=== PATIENT | female | born 2000 | race Caucasian/White ===

== ENCOUNTER → 2018-11-09 | Outpatient (CLI) | payer OTHER ==
--- NOTE | 2018-11-09 15:23 | XR ---
EXAMINATION TYPE: XR wrist complete RT DATE OF EXAM: 11/09/2018 COMPARISON: None HISTORY: Wrist pain twisting injury TECHNIQUE: 4 view right wrist FINDINGS: No acute fractures are evident. Joint spaces are preserved. Soft tissues are normal. If there is pain at the anatomic snuff box, nuclear medicine bone scan can be performed for additiona l evaluation. Follow-up exams can be performed 7-10 days from acute trauma for continued pain. IMPRESSION: 1. Normal 4 view right wrist
== END | disposition home or self-care (01) ==
LOC: RADXRMAIN 14:44
PROVIDERS: ATTEND Emergency Medicine
DX: S63.501A Unspecified sprain of right wrist, initial encounter (principal)

== ENCOUNTER → 2018-11-16 | Outpatient (CLI) | payer OTHER ==
--- NOTE | 2018-11-16 16:12 | MR ---
EXAMINATION TYPE: MR wrist RT wo con DATE OF EXAM: 11/16/2018 COMPARISON: Right wrist radiographs dated 11/09/2018 HISTORY: Right wrist pain after twisting injury with negative radiographs on 11/09/2018. TECHNIQUE: Multiplanar, multisequence images of the right wrist were acquired without intravenous con trast per department protocol. FINDINGS: The triangular fibrocartilage appears grossly intact on this nonarthrographic examination. There is mild soft tissue swelling and subcutaneous edema overlying the radial aspect of the first pr oximal metacarpal and compartment 1 (extensor pollicis brevis and abductor pollicis longus). There is also very subtle thickening of the abductor pollicis longus. There is no evidence of abnormal bone marrow signal to suggest occult fracture. Flexor tendons and ex tensor tendons appear intact and of normal signal. The scapholunate interval and ligament appear unremarkable. Ulnar nerve and radial nerves appear unre markable. No malalignment of the wrist. Carpal carpal interspaces are maintained. IMPRESSION: 1. Focal soft tissue swelling over the radial aspect of the right first proximal metacarpal and pasquale rtment one of the tendons of the wrist with findings of mild tendinosis of the abductor pollicis long us and to a lesser degree of the extensor pollicis brevis. 2. No bone marrow edema to suggest occult fracture.
== END | disposition home or self-care (01) ==
LOC: RADMRIMAIN 14:58
PROVIDERS: ATTEND Orthopaedic Surgery
DX: M79.89 Other specified soft tissue disorders (principal); M67.833 Other specified disorders of tendon, right wrist

== ENCOUNTER 2019-05-08 17:15 | Emergency (ER) | payer OTHER ==
[2019-05-08 17:34] VITALS: RESP 18
[2019-05-08] MEDS ORDERED: KETOROLAC 30 MG/ML 1 ML VIAL IVP STA (19:59)
[2019-05-08] MEDS ORDERED: SODIUM CHLORIDE 0.9% 1,000 ML IV STA ×2 (19:59)
[2019-05-08] MEDS ORDERED: cefTRIAXone IN SWFI 1,000 MG/10 ML SYRINGE IVP STA (19:59)
[2019-05-08 20:51] LABS: Basophils % (A) 0 %; Eosinophils # (A) 0.1 k/uL (0-0.7); Eosinophils % (A) 1 %; HCT 42.7 % (34.0-46.0); HGB 14.5 gm/dL (11.4-16.0); Lymphocytes # (A) 1.2 k/uL (1.0-4.8); Lymphocytes % (A) 10 %; MCH 30.1 pg (25.0-35.0); MCV 88.4 fL (80.0-100.0); Mean Platelet Volume 7.5; Monocytes # (A) 0.7 k/uL (0-1.0); Monocytes % (A) 6 %; Neutrophils # (A) 9.4 k/uL (1.3-7.7); Neutrophils % (A) 80 %; Platelet Count 249 k/uL (150-450); RBC 4.83 m/uL (3.80-5.40); RDW 14.9 % (11.5-15.5); WBC 11.8 k/uL (3.8-10.6)
[2019-05-08 20:57] LABS: Appearance,Urine Clear (Clear); Bacteria,Urine Rare /hpf; Bilirubin,Urine Negative (Negative); Blood,Urine Moderate (Negative); Color,Urine Yellow; Glucose,Urine (UA) Negative (Negative); Ketones,Urine 1+ (Negative); Leukocyte Esterase,Urine Moderate (Negative); Mucus,Urine Rare /hpf; Nitrite,Urine Negative (Negative); Protein,Urine Trace (Negative); RBC,Urine 71 /hpf (0-5); Specific Gravity,Urine 1.043 (1.001-1.035); Squamous Epithelial Cell,Urine 1 /hpf (0-4); Urobilinogen,Urine <2.0 mg/dL (<2.0)
[2019-05-08 21:01] LABS: ALT 17 U/L (9-52); AST 18 U/L (14-36); African American GFR (CKD) >90 (>60 ml/min/1.73 sqM); Albumin 4.8 g/dL (3.5-5.0); Alkaline Phosphatase 74 U/L (38-126); Anion Gap 15 mmol/L; Blood Urea Nitrogen 10 mg/dL (7-17); Carbon Dioxide 23 mmol/L (22-30); Chloride 101 mmol/L (98-107); Glucose 97 mg/dL (74-99); Magnesium 2.2 mg/dL (1.6-2.3); Potassium 4.3 mmol/L (3.5-5.1); Sodium 139 mmol/L (137-145); Total Bilirubin 0.8 mg/dL (0.2-1.3); Total Protein 8.3 g/dL (6.3-8.2)
--- NOTE | 2019-05-08 21:02 | ED ---
Abdominal Pain HPI - General Source: patient, RN notes reviewed Mode of arrival: ambulatory Limitations: no limitations - History of Present Illness MD Complaint: flank pain <Stevo Gonsalez - Last Filed: 05/08/19 20:58> <Bacilio Taylor - Last Filed: 05/08/19 22:35> - General Chief Complaint: Abdominal Pain Stated Complaint: vomiting; fever; flank pain Time Seen by Provider: 05/08/19 19:52 - History of Present Illness Initial Comments: This a 19-year-old female with a recent diagnoses of UTI who presents with complaints of left flank pain but last 2 weeks she was diagnosed with UTI in the office today started on Cipro which throughout. The CAT scan was done outpatient was negative for acute findings she presents with pain is sharp with movement 10/10 severity dull at rest. Nausea vomiting she did have some diarrhea with it also. She denies any chance of no other modifying factors this time. (Stevo Gonsalez) - Related Data Home Medications Medication Instructions Recorded Confirmed No Known Home Medications 03/04/15 05/08/19 Allergies Allergy/AdvReac Type Severity Reaction Status Date / Time Penicillins Allergy Rash/Hives Verified 05/08/19 20:02 Review of Systems ROS Other: All systems not noted in ROS Statement are negative. <Stevo Gonsalez - Last Filed: 05/08/19 20:58> ROS Other: All systems not noted in ROS Statement are negative. <Bacilio Taylor - Last Filed: 05/08/19 22:35> ROS Statement: Those systems with pertinent positive or pertinent negative responses have been documented in the HPI. Past Medical History Additional Past Medical History / Comment(s): SEE DR BUSTAMANTE'S H&P History of Any Multi-Drug Resistant Organisms: None Reported Past Surgical History: Adenoidectomy, Tonsillectomy Additional Past Surgical History / Comment(s): TUBES PLACED LYNETTE EARS,COLONOSCOPY,EGD Past Anesthesia/Blood Transfusion Reactions: No Reported Reaction Past Psychological History: No Psychological Hx Reported Smoking Status: Current every day smoker Past Alcohol Use History: Occasional Past Drug Use History: None Reported - Past Family History Mother Family Medical History: No Reported History Father Family Medical History: No Reported History <Stevo Gonsalez - Last Filed: 05/08/19 20:58> General Exam Limitations: no limitations General appearance: alert, in no apparent distress Head exam: Present: atraumatic, normocephalic, normal inspection Eye exam: Present: normal appearance, PERRL, EOMI. Absent: scleral icterus, conjunctival injection, periorbital swelling ENT exam: Present: normal exam, mucous membranes moist Neck exam: Present: normal inspection. Absent: tenderness, meningismus, lymphadenopathy Respiratory exam: Present: normal lung sounds bilaterally. Absent: respiratory distress, wheezes, rales, rhonchi, stridor Cardiovascular Exam: Present: normal rhythm, tachycardia, normal heart sounds. Absent: systolic murmur, diastolic murmur, rubs, gallop, clicks GI/Abdominal exam: Present: soft, tenderness (Left flank tenderness left lower quadrant tenderness), normal bowel sounds. Absent: distended, guarding, reboun d, rigid Rectal exam: Present: deferred Extremities exam: Present: normal inspection, full ROM, normal capillary refill. Absent: tenderness, pedal edema, joint swelling, calf tenderness Back exam: Present: normal inspection, full ROM, CVA tenderness (L) Neurological exam: Present: alert, oriented X3, CN II-XII intact Psychiatric exam: Present: normal affect, normal mood Skin exam: Present: warm, dry, intact, normal color. Absent: rash <Stevo Gonsalez - Last Filed: 05/08/19 20:58> - General Exam Comments Initial Comments: This is a well-developed well-nourished awake alert oriented 3 female (Stevo Gonsalez) Course <Stevo Gonsalez Filed: 05/08/19 20:58> Vital Signs 05/08/19 05/08/19 05/08/19 17:30 19:49 22:13 Temperature 100.3 F H 100.6 F H 98.9 F Pulse Rate 130 H 104 H 85 Respiratory 18 18 18 Rate Blood Pressure 119/82 135/87 114/69 O2 Sat by Pulse 98 97 98 Oximetry - Reevaluation(s) Reevaluation #1: 05/08/19 21:01 The patient will be endorsed to Dr. Taylor at her shift change. Patient is demonstrated evidence of fever left flank pain tachycardia labs are pending at this time the suspected pyelonephritis this time. I did discuss the case with Dr. Aguirre earlier. . Workup is in progress. (Stevo Gonsalez) Medical Decision Making - Lab Data Result diagrams: 05/08/19 20:35 <Stevo Gonsalez - Last Filed: 05/08/19 20:58> - Lab Data Result diagrams: 05/08/19 20:35 05/08/19 20:35 <Bacilio Taylor - Last Filed: 05/08/19 22:35> - Medical Decision Making I receive this patient as sign out to reevaluate after fluids and medication. The patient states she is feeling much better and would like to go home. Discussed that Dr. Russell had mentioned keeping her in the hospital overnight but she states she is feeling somewhat better she wants to continue her outpatient care and follow-up with him in the clinic, discussed return parameters and appropriate follow-up. (Bacilio Taylor) - Lab Data Lab Results 05/08/19 05/08/19 05/08/19 Range/Units 20:35 20:35 20:35 WBC 11.8 H (3.8-10.6) k/uL RBC 4.83 (3.80-5.40) m/uL Hgb 14.5 (11.4-16.0) gm/dL Hct 42.7 (34.0-46.0) % MCV 88.4 (80.0-100.0) fL MCH 30.1 (25.0-35.0) pg MCHC 34.0 (31.0-37.0) g/dL RDW 14.9 (11.5-15.5) % Plt Count 249 (150-450) k/uL Neutrophils % 80 % Lymphocytes % 10 % Monocytes % 6 % Eosinophils % 1 % Basophils % 0 % Neutrophils # 9.4 H (1.3-7.7) k/uL Lymphocytes # 1.2 (1.0-4.8) k/uL Monocytes # 0.7 (0-1.0) k/uL Eosinophils # 0.1 (0-0.7) k/uL Basophils # 0.0 (0-0.2) k/uL Sodium 139 (137-145) mmol/L Potassium 4.3 (3.5-5.1) mmol/L Chloride 101 (98-107) mmol/L Carbon Dioxide 23 (22-30) mmol/L Anion Gap 15 mmol/L BUN 10 (7-17) mg/dL Creatinine 0.84 (0.52-1.04) mg/dL Est GFR (CKD-EPI)AfAm >90 (>60 ml/min/1.73 sqM) Est GFR (CKD-EPI)NonAf >90 (>60 ml/min/1.73 sqM) Glucose 97 (74-99) mg/dL Plasma Lactic Acid James (0.7-2.0) mmol/L Calcium 10.0 (8.4-10.2) mg/dL Magnesium 2.2 (1.6-2.3) mg/dL Total Bilirubin 0.8 (0.2-1.3) mg/dL AST 18 (14-36) U/L ALT 17 (9-52) U/L Alkaline Phosphatase 74 (38-126) U/L Total Protein 8.3 H (6.3-8.2) g/dL Albumin 4.8 (3.5-5.0) g/dL Urine Color Urine Appearance (Clear) Urine pH (5.0-8.0) Ur Specific [place] (1.001-1.035) Urine Protein (Negative) Urine Glucose (UA) (Negative) Urine Ketones (Negative) Urine Blood (Negative) Urine Nitrite (Negative) Urine Bilirubin (Negative) Urine Urobilinogen (<2.0) mg/dL Ur Leukocyte Esterase (Negative) Urine RBC (0-5) /hpf Urine WBC (0-5) /hpf Ur Squamous Epith Cells (0-4) /hpf Urine Bacteria (None) /hpf Urine Mucus (None) /hpf Urine HCG, Qual Not Detected (Not Detectd) 05/08/19 05/08/19 Range/Units 20:35 20:35 WBC (3.8-10.6) k/uL RBC (3.80-5.40) m/uL Hgb (11.4-16.0) gm/dL Hct (34.0-46.0) % MCV (80.0-100.0) fL MCH (25.0-35.0) pg MCHC (31.0-37.0) g/dL RDW (11.5-15.5) % Plt Count (150-450) k/uL Neutrophils % % Lymphocytes % % Monocytes % % Eosinophils % % Basophils % % Neutrophils # (1.3-7.7) k/uL Lymphocytes # (1.0-4.8) k/uL Monocytes # (0-1.0) k/uL Eosinophils # (0-0.7) k/uL Basophils # (0-0.2) k/uL Sodium (137-145) mmol/L Potassium (3.5-5.1) mmol/L Chloride (98-107) mmol/L Carbon Dioxide (22-30) mmol/L Anion Gap mmol/L BUN (7-17) mg/dL Creatinine (0.52-1.04) mg/dL Est GFR (CKD-EPI)AfAm (>60 ml/min/1.73 sqM) Est GFR (CKD-EPI)NonAf (>60 ml/min/1.73 sqM) Glucose (74-99) mg/dL Plasma Lactic Acid James 1.1 (0.7-2.0) mmol/L Calcium (8.4-10.2) mg/dL Magnesium (1.6-2.3) mg/dL Total Bilirubin (0.2-1.3) mg/dL AST (14-36) U/L ALT (9-52) U/L Alkaline Phosphatase (38-126) U/L Total Protein (6.3-8.2) g/dL Albumin (3.5-5.0) g/dL Urine Color Yellow Urine Appearance Clear (Clear) Urine pH 6.0 (5.0-8.0) Ur Specific [place] 1.043 H (1.001-1.035) Urine Protein Trace H (Negative) Urine Glucose (UA) Negative (Negative) Urine Ketones 1+ H (Negative) Urine Blood Moderate H (Negative) Urine Nitrite Negative (Negative) Urine Bilirubin Negative (Negative) Urine Urobilinogen <2.0 (<2.0) mg/dL Ur Leukocyte Esterase Moderate H (Negative) Urine RBC 71 H (0-5) /hpf Urine WBC 41 H (0-5) /hpf Ur Squamous Epith Cells 1 (0-4) /hpf Urine Bacteria Rare H (None) /hpf Urine Mucus Rare H (None) /hpf Urine HCG, Qual (Not Detectd) Disposition <Stevo Gonsalez - Last Filed: 05/08/19 20:58> Is patient prescribed a controlled substance at d/c from ED?: No <Bacilio Taylor - Last Filed: 05/08/19 22:35> Clinical Impression: Urinary tract infection Disposition: HOME SELF-CARE Condition: Good Instructions (If sedation given, give patient instructions): Urinary Tract Infection in Women (ED) Referrals: Amanuel Aguirre Jr, [Primary Care Provider] - 1-2 days
[2019-05-08 22:14] VITALS: BP 114/69; PULSE 85; TEMP 98.9
== END 2019-05-08 22:50 | disposition home or self-care (01) ==
LOC: EC 17:15
DX: N39.0 Urinary tract infection, site not specified (principal); R00.0 Tachycardia, unspecified; R11.2 Nausea with vomiting, unspecified; R19.7 Diarrhea, unspecified; F17.200 Nicotine dependence, unspecified, uncomplicated; Z88.0 Allergy status to penicillin
CPT/HCPCS: 36415; 80053; 83605; 83735; 85025; 81001; 81025; 87086; 99284; 96374; 96375; 96361 ×2; J0696; J1885

== ENCOUNTER → 2019-05-08 | Outpatient (CLI) | payer OTHER ==
[2019-05-08 12:07] LABS: ALT 19 U/L (9-52); AST 18 U/L (14-36); African American GFR (CKD) >90 (>60 ml/min/1.73 sqM); Alkaline Phosphatase 72 U/L (38-126); Amylase 56 U/L (30-110); Anion Gap 12 mmol/L; Blood Urea Nitrogen 11 mg/dL (7-17); Carbon Dioxide 26 mmol/L (22-30); Chloride 102 mmol/L (98-107); Glucose 98 mg/dL (74-99); Potassium 4.5 mmol/L (3.5-5.1); Sodium 140 mmol/L (137-145); Total Bilirubin 1.1 mg/dL (0.2-1.3); Total Protein 8.8 g/dL (6.3-8.2)
[2019-05-08 12:27] LABS: Basophils % (A) 0 %; Eosinophils # (A) 0.1 k/uL (0-0.7); Eosinophils % (A) 1 %; HCT 46.5 % (34.0-46.0); HGB 15.3 gm/dL (11.4-16.0); Lymphocytes # (A) 0.9 k/uL (1.0-4.8); Lymphocytes % (A) 7 %; MCH 29.4 pg (25.0-35.0); MCHC 32.9 g/dL (31.0-37.0); MCV 89.3 fL (80.0-100.0); Mean Platelet Volume 7.9; Monocytes # (A) 0.7 k/uL (0-1.0); Monocytes % (A) 6 %; Neutrophils % (A) 84 %; Platelet Count 228 k/uL (150-450); RBC 5.21 m/uL (3.80-5.40); RDW 14.7 % (11.5-15.5); WBC 11.9 k/uL (3.8-10.6)
--- NOTE | 2019-05-08 13:12 | CT ---
EXAMINATION TYPE: CT abdomen pelvis w con DATE OF EXAM: 05/08/2019 COMPARISON: Nausea vomiting fever INDICATION: Left flank pain, nausea, vomiting DLP: 469.2 mGycm, Automated exposure control for dose reduction was used. CONTRAST: 100 mL of Isovue 300. Study performed with Oral Contrast TECHNIQUE: Axial images were obtained from above the diaphragm to the pubic rami in the axial plane a t 5 mm thick sections. Reconstructed images are reviewed on the computer in the coronal plane. FINDINGS: Limited CT sections are obtained the lung bases. The lung bases are clear. CT ABDOMEN: Reflux in the distal esophagus is evident. Liver: Normal Spleen: Normal Pancreas: Normal Adrenal glands: The adrenal glands are normal. Gallbladder: Normal Kidneys: No masses are evident. No hydronephrosis is present. No cysts are present. Delayed images were obtained through the kidneys, which remain unremarkable. Aorta: Normal Inferior vena cava: Normal. CT PELVIS: Loops of bowel within the abdomen and pelvis are normal. There are loops of bowel which are incom pletely distended or lack oral contrast limiting their evaluation. Appendix: Normal as visualized. Urinary bladder: Normal. Genitourinary structures: Uterus contains an IUD. Adnexal regions are normal. No free fluid is within the pelvis. Osseous structures: No suspicious lytic or sclerotic lesions. IMPRESSIONS: 1. CT abdomen pelvis appears unremarkable.
== END | disposition home or self-care (01) ==
LOC: RADCTMAIN 11:10
PROVIDERS: ATTEND Nurse Practitioner Family
DX: R10.84 Generalized abdominal pain (principal); R31.9 Hematuria, unspecified; R11.2 Nausea with vomiting, unspecified; R50.9 Fever, unspecified; Z88.0 Allergy status to penicillin
CPT/HCPCS: 80053; 82150; 83690; 85025; 74177; 36415; Q9967

== ENCOUNTER → 2019-07-11 | Outpatient (CLI) | payer OTHER ==
--- NOTE | 2019-07-12 07:48 | US ---
EXAMINATION TYPE: US transvaginal DATE OF EXAM: 07/11/2019 COMPARISON: NONE CLINICAL HISTORY: R10.30 LOWER ABD PAIN. IUD placed 5 years ago, heavy bleeding now, , TECHNIQUE: TV. Transvaginal sonographic images EXAM MEASUREMENTS: Uterus: 8.9 x 5.1 x 3.8 cm Endometrial Stripe: 0.6 cm Right Ovary: 3.1 x 3.0 x 2.5 cm Left Ovary: N/A 1. Uterus: Anteverted IUD seen within GLORIA and upper cervix, low-lying 2. Endometrium: wnl 3. Right Ovary: wnl 4. Left Ovary: not seen due to bowel gas 5. Bilateral Adnexa: wnl 6. Posterior cul-de-sac: wnl IMPRESSION: 1. Low-lying intrauterine device spanning the upper cervix and lower uterine segment. 2. Endometrial thickness is within normal limits for a premenopausal female. 3. Nonvisualization of the left ovary due to overlying bowel gas.
== END | disposition home or self-care (01) ==
LOC: RADUSWWP 15:29
PROVIDERS: ATTEND Family Medicine
DX: N94.6 Dysmenorrhea, unspecified (principal); Z97.5 Presence of (intrauterine) contraceptive device; Z88.0 Allergy status to penicillin
CPT/HCPCS: 76830

== ENCOUNTER → 2019-07-17 | Outpatient (CLI) | payer OTHER ==
--- NOTE | 2019-07-17 12:58 | US ---
EXAMINATION TYPE: US transvaginal DATE OF EXAM: 07/17/2019 COMPARISON: US 07/11/2019 CLINICAL HISTORY: Female pelvic pain R10.2. Recheck on IUD placement, intermittent left pelvic pain x 2 months, 1, para 1, history of . TECHNIQUE: Transvaginal exam only per ordering physician. Date of LMP: Patient unsure EXAM MEASUREMENTS: Uterus: 7.7 x 3.6 x 4.6 cm Endometrial Stripe: 1.0 cm Right Ovary: 3.2 x 1.9 x 2.1 cm Left Ovary: 3.1 x 2.2 x 2.5 cm 1. Uterus: anteverted, IUD seen within GLORIA and upper cervix, low lying 2. Endometrium: appears wnl 3. Right Ovary: multiple follicles, physiologic 4. Left Ovary: multiple follicles, physiologic 5. Bilateral Adnexa: wnl 6. Posterior cul-de-sac: wnl IMPRESSION: 1. Redemonstration of a low-lying intrauterine device within the lower uterine segment and upper cerv ix. 2. Endometrial thickness is again within normal limits for a premenopausal female measuring 1.0 cm.
== END | disposition home or self-care (01) ==
LOC: RADUSWWP 12:02
PROVIDERS: ATTEND Nurse Practitioner Family
DX: T83.32XA Displacement of intrauterine contraceptive device, initial encounter (principal)
CPT/HCPCS: 76830

== ENCOUNTER → 2019-08-09 | Outpatient (CLI) | payer OTHER ==
--- NOTE | 2019-08-09 13:02 | XR ---
EXAMINATION TYPE: XR elbow complete LT DATE OF EXAM: 08/09/2019 COMPARISON: None HISTORY: Pain, osteogenesis TECHNIQUE: Three-view left elbow FINDINGS: No acute fractures are evident. Radius aligns normally with the humerus. Anterior fat pad i s normal. No elevation of posterior fat pad is evident. IMPRESSION: 1. No acute fractures within the [id number]. 2. Follow-up exams can be performed 7-10 days from acute trauma for continued pain.
== END | disposition home or self-care (01) ==
LOC: RADXRMAIN 12:29
PROVIDERS: ATTEND Family Medicine
DX: M25.522 Pain in left elbow (principal)

== ENCOUNTER → 2019-08-22 | Outpatient (CLI) | payer OTHER ==
--- NOTE | 2019-08-23 11:24 | XR ---
EXAMINATION TYPE: XR knee complete RT DATE OF EXAM: 08/22/2019 CLINICAL HISTORY: pain TECHNIQUE: Three views of the right knee are obtained. COMPARISON: None. FINDINGS: There is no acute fracture/dislocation. The tri-compartment joint spaces appear within no rmal limits. The overlying soft tissue appears unremarkable. IMPRESSION: There is no acute fracture or dislocation.ICD 10 NO FRACTURE, INITIAL EVALUATION
== END | disposition home or self-care (01) ==
LOC: RADXRMAIN 16:34
PROVIDERS: ATTEND Family Medicine
DX: M25.561 Pain in right knee (principal); M25.461 Effusion, right knee

== ENCOUNTER → 2019-09-01 | Outpatient (CLI) | payer OTHER ==
--- NOTE | 2019-09-02 12:35 | US ---
EXAMINATION TYPE: US venous Doppler duplex LE LYNETTE and Venous Insufficiency evaluation . DATE OF EXAM: 09/01/2019 5:33 PM COMPARISON: NONE CLINICAL HISTORY: I87.2 Venous insufficiency (chronic) (peripheral). Cardiac palpitations; Negative f or varicose veins. SIDE PERFORMED: Bilateral TECHNIQUE: The lower extremity deep venous system is examined utilizing real time linear array sonog arvin with graded compression, Doppler sonography and color-flow sonography. VESSELS IMAGED: Common Femoral Vein Deep Femoral Vein Greater Saphenous Vein * Femoral Vein Popliteal Vein Proximal Calf Veins (* superficial vessels / SVT) No venous valvular incompetency is noted bilaterally in deep or superficial venous systems. Delayed v alve closure is only noted at Right CFV. Right Leg: Negative for DVT. Negative for SVT. Left Leg: Negative for DVT. Negative for SVT There is normal flow, compressibility, vascular waveforms. IMPRESSION: No evident venous insufficiency or deep venous thrombosis within the lower extremities
== END | disposition home or self-care (01) ==
LOC: RADUSMAIN 16:36
PROVIDERS: ATTEND Internal Medicine Cardiovascular Disease
DX: R00.2 Palpitations (principal)
CPT/HCPCS: 93970

== ENCOUNTER → 2019-09-18 | Outpatient (CLI) | payer OTHER ==
--- NOTE | 2019-09-18 22:29 | MR ---
EXAMINATION TYPE: MR knee RT wo con DATE OF EXAM: 09/18/2019 COMPARISON: Outside right knee x-ray September 01, 2019 HISTORY: Right Knee Pain per order. Additional symptoms of locking and swelling for couple months per patient. TECHNIQUE: Multiplanar, multisequence images of the knee is performed without IV contrast. FINDINGS: MEDIAL MENISCUS: Anterior and posterior horns are intact without tear. LATERAL MENISCUS: Anterior and posterior horns are intact without tear. CRUCIATE LIGAMENTS: The anterior and posterior cruciate ligaments are intact and unremarkable. COLLATERAL LIGAMENTS: The medial collateral ligament and lateral collateral ligament complex are inta ct and unremarkable. EXTENSOR MECHANISM: Visualized quadriceps and patellar tendons are intact. EFFUSION: There is small suprapatellar joint effusion. POPLITEAL CYST: No popliteal/marinelli cyst. TRICOMPARTMENT SPACES: Tricompartment joint space is fairly well-maintained. No significant spurring is seen. CARTILAGE: Tricompartment articular cartilage is preserved. No significant chondromalacia patella. BONE MARROW SIGNAL: No focal abnormal marrow signal is appreciated. OTHER: No additional significant abnormality is appreciated. IMPRESSION: No meniscal or ligamentous tear is seen.
== END | disposition home or self-care (01) ==
LOC: RADMRIMAIN 18:57
PROVIDERS: ATTEND Orthopaedic Surgery
DX: M25.561 Pain in right knee (principal)

== ENCOUNTER → 2020-06-26 | Outpatient (CLI) | payer OTHER ==
--- NOTE | 2020-06-27 04:30 | CT ---
EXAMINATION TYPE: CT abdomen pelvis wo con DATE OF EXAM: 06/26/2020 COMPARISON: 05/08/2019 HISTORY: 20-year-old female lower anterior abdominal pain, hematuria CT DLP: 776 mGycm. Automated exposure control for dose reduction was used. TECHNIQUE: Contiguous axial scanning of the abdomen and pelvis without IV contrast. Coronal and sagit allison reconstructions performed. FINDINGS: Heart normal size without pericardial effusion. Lung bases clear without pleural effusion. Liver mildly enlarged at 18.3 cm. Otherwise, noncontrast appearance of the liver, gallbladder, adrena l glands, spleen, and pancreas shows no gross anomaly. Redemonstrated bilateral extrarenal pelves. No nephrolithiasis or noemy hydronephrosis is seen. No dilated small bowel, free fluid, free air. There is a omental fat-containing supraumbilical midline hernia measuring 2.9 cm wide and 4.0 cm cran iocaudal with a pinhole 6 mm abdominal wall defect. No associated inflammatory changes. No mesenteric or retroperitoneal lymphadenopathy. Normal appendix. Mild to moderate stool burden. There is a nodular area of mixed fat and soft tissue density measuring 1.4 cm in the left anterior pelvis adjacent to the proximal sigmoid colon, axial im age 113. Moderate stool retained within the rectum which is distended up to 5.6 cm wide. Prominent distention of the urinary bladder. Multiple pelvic phlebolith. Uterus anteverted. Both ovar ies are visualized. No abnormal fluid collection in the pelvis or pelvic lymphadenopathy. Bones: No osseous destructive process. IMPRESSION: 1. A 2.9 x 4.0 cm omental fat-containing supraumbilical midline hernia with a pinhole, 6 mm abdomina l wall defect. No associated inflammatory changes. 2. A 1.4 cm nodular area of mixed fat and soft tissue density in the left anterior pelvis adjacent t o the proximal sigmoid colon. Correlate for any symptoms of epiploic appendagitis. 3. Moderate stool retained in the rectum which is distended up to 5.6 cm wide. 4. No nephrolithiasis or hydronephrosis. Prominent distention of the urinary bladder.
== END | disposition home or self-care (01) ==
LOC: RADCTMAIN 16:22
PROVIDERS: ATTEND Family Medicine
DX: K42.9 Umbilical hernia without obstruction or gangrene (principal); M79.89 Other specified soft tissue disorders; K62.89 Other specified diseases of anus and rectum; N32.89 Other specified disorders of bladder; M95.8 Other specified acquired deformities of musculoskeletal system; R19.09 Other intra-abdominal and pelvic swelling, mass and lump; Z88.0 Allergy status to penicillin
CPT/HCPCS: 74176

== ENCOUNTER → 2020-07-09 | Outpatient (CLI) | payer OTHER | END | disposition home or self-care (01) | LOC: LABPAT 08:35 | PROVIDERS: ATTEND Student in an Organized Health Care Education/Training Program | DX: Z01.818 Encounter for other preprocedural examination (principal); U07.1 COVID-19 | CPT/HCPCS: 93005; U0003; C9803; 36415; 86850; 86900; 86901 ==

== ENCOUNTER 2020-07-16 09:43 | Day surgery (SDC) | payer OTHER ==
[2020-07-12 14:54] VITALS: BMI 27.9
[~2020-07-16 09:43] MED LIST: DEXAMETHASONE SOD PHOSPHATE 4 MG/ML 1 ML VIAL IV ONE; LACTATED RINGERS 1,000 ML IV SCH; MIDAZOLAM 2 MG/2 ML VIAL IV PRN; ONDANSETRON 4 MG/2 ML VIAL IVP ONE; SCOPOLAMINE 1.5MG/72HR PATCH TRANSDERM ONE
[2020-07-16] MEDS ORDERED: LIDOCAINE 1% (10MG/ML) FOR IV START INTRADERMA ONE (10:45)
[2020-07-16] MEDS ORDERED: CLINDAMYCIN 600 MG in DEXTROSE 5% IN WATER 50 ML IVPB STA ×2 (11:08)
[2020-07-16] MEDS ORDERED: HEPARIN SODIUM,PORCINE 5,000 UNIT/ML 1 ML VIAL ONE (11:09)
--- NOTE | 2020-07-16 11:38 | P.ANPRN ---
Procedure Note - Anesthesia - Nerve Block Performed Bilateral Transversus Abdominis Single Date of Procedure: 07/16/20 Procedure Start Time: 11:24 Procedure Stop Time: 11:34 Location of Patient: PreOp Indication: Acute Post-Operative Pain, Requested by Surgeon Sedation Type: Sedate with meaningful contact maintained Preparation: Sterile Prep Position: Supine Catheter: None Needle Types: Pajunk Needle Gauge: 21 Ultrasound used to visualize needle placement: Yes Ultrasound used to observe medication spread: Yes Injectate: 0.5% Ropivacaine (see comment for volume) (30 ml plus decadron 4 mg) Blood Aspirated: No Pain Paresthesia on Injection Noted: No Resistance on Injection: Normal Image Stored and Saved: Yes Events: Uneventful and Well Tolerated
[2020-07-16] MEDS ORDERED: HEPARIN SODIUM,PORCINE 5,000 UNIT/ML 1 ML VIAL SQ ONE (11:42)
[2020-07-16] MEDS ORDERED: ROPIVACAINE 5 MG/ML 30 ML VIAL ONE (12:06)
[2020-07-16] MEDS ORDERED: MIDAZOLAM 2 MG/2 ML VIAL ONE (12:06)
[2020-07-16] MEDS ORDERED: GLYCOPYRROLATE 0.2 MG/ML 2 ML VIAL ONE (12:06)
[2020-07-16] MEDS ORDERED: PROPOFOL 10 MG/ML 20 ML VIAL IV ONE (12:06)
[2020-07-16] MEDS ORDERED: SUCCINYLCHOLINE CHLORIDE 100 MG/5 ML SYR IV ONE (12:06)
[2020-07-16] MEDS ORDERED: fentaNYL (PF) 50 MCG/ML 2 ML AMP ONE (12:06)
[2020-07-16] MEDS ORDERED: ROCURONIUM 10 MG/ML (10 ML VIAL) IV ONE (12:06)
[2020-07-16] MEDS ORDERED: HYDROmorphone (PF) 1 MG/ML ONE (12:06)
[2020-07-16] MEDS ORDERED: LIDOCAINE 1% INJ 10MG/ML (20 ML MDV) ONE (12:06)
[2020-07-16] MEDS ORDERED: NEOSTIGMINE 1 MG/ML 10 ML VIAL ONE (12:06)
[2020-07-16] MEDS ORDERED: BUPIVACAINE (PF) 0.25% 30 ML VIAL SQ ONE ×2 (12:28→12:35)
[2020-07-16] MEDS ORDERED: LACTATED RINGERS 1,000 ML IV ONE (14:15)
[2020-07-16] MEDS: HYDROmorphone 0.5 MG/0.5 ML SYRINGE IVP PRN ×2 (14:31→14:41)
[2020-07-16 14:36] VITALS: TEMP 97.1
--- NOTE | 2020-07-16 14:44 | P.OP ---
Date of Procedure: 07/16/20 Preoperative Diagnosis: Incarcerated ventral hernia Postoperative Diagnosis: Same Procedure(s) Performed: Robotic-assisted repair of incarcerated ventral hernia Anesthesia: MADDI Surgeon: Martinez Mcdermott Estimated Blood Loss (ml): 10 Condition: stable Disposition: PACU Description of Procedure: Patient is brought operative suite remained in the supine position on general endotracheal anesthesia per Department of anesthesia she was prepped and draped usual sterile fashion timeout was performed correct patient correct procedure correct site was verified a 5 mm incision was made in the left upper quadrant at palmers point using a 5 mm Visiport the abdomen was entered under direct visualization. The abdomen was insufflated no injuries were noted. An 8 mm port was placed left lateral and the midline. And a 8 mm port was placed in the left lower quadrant under direct visualization. The 5 mm port site was upsized to a 12 mm port. The mesh and needles were placed under direct visualization and the abdomen and the robot was docked. There was a supraumbilical defect noted with incarcerated fat and containing part of the falciform ligament. This was taken down and reduced. The falciform was partially taken down and excised with the LigaSure device. The defect was then closed with an oh straw affixed. The mesh was placed and brought up to the anterior abdominal wall balloon was insufflated and then the mesh was circumferentially sutured with 2-0 V locksutures. The balloon and all the needles were removed the specimen hernia contents was removed the 12 mm port site was closed with the fascia with an 0 Vicryl in an interrupted fashion skin was closed after all ports removed under d irect visualization the abdomen was desufflated with 4-0 Monocryl suture. All by skin glue. Patient tolerated the procedure well there are no apparent complications Plan - Discharge Summary Discharge Rx Participant: Yes New Discharge Prescriptions: No Action Metoprolol Tartrate [Lopressor] 12.5 mg PO BID Discharge Medication List Metoprolol Tartrate [Lopressor] 12.5 mg PO BID 07/12/20 [History]
[2020-07-16] MEDS: HYDROmorphone 1 MG/ML 1 ML SYRINGE IVP ONE ×2 (14:52→15:04)
[2020-07-16] MEDS ORDERED: KETOROLAC 15 MG/ML 1 ML VIAL IVP ONE (14:53)
[2020-07-16] MEDS ORDERED: ONDANSETRON 4 MG/2 ML VIAL IVP ONE (14:53)
[2020-07-16 15:37] VITALS: RESP 18
[2020-07-16 16:46] VITALS: BP 111/63; PULSE 69
[2020-07-16] MEDS ORDERED: HYDROcodone/APAP 5-325MG 1 EACH TAB PO ONE (16:50)
[2020-07-16] MEDS ORDERED: HYDROcodone/APAP 5-325MG 1 EACH TAB ONE (16:53)
== END 2020-07-16 17:27 | disposition home or self-care (01) ==
LOC: OR 09:43
PROVIDERS: ATTEND Student in an Organized Health Care Education/Training Program
DX: K43.6 Other and unspecified ventral hernia with obstruction, without gangrene (principal); Z98.891 History of uterine scar from previous surgery; Z98.890 Other specified postprocedural states; F17.210 Nicotine dependence, cigarettes, uncomplicated; Z82.49 Family history of ischemic heart disease and other diseases of the circulatory system; Z79.3 Long term (current) use of hormonal contraceptives; Z79.899 Other long term (current) drug therapy; Z88.0 Allergy status to penicillin
CPT/HCPCS: 49653; S2900; 36415; 64488; 86850; 86900; 86901; 88302

== ENCOUNTER → 2021-02-08 | Outpatient (CLI) | payer OTHER ==
--- NOTE | 2021-02-09 05:22 | MR ---
EXAMINATION TYPE: MR knee RT wo con DATE OF EXAM: 02/08/2021 COMPARISON: 09/18/2019 HISTORY: R knee pain Multiplanar multiecho imaging of the right knee was performed without contrast. The anterior and posterior cruciate ligaments are intact. There is small knee joint effusion. There a re small linear area of increased signal in the posterior horn medial meniscus extending to the infer ior surface. The lateral meniscus appears intact. The collateral ligaments are intact. There is no ev idence of a fracture. I see no bony destructive process. IMPRESSION: Small joint effusion. Small horizontal tear posterior horn medial meniscus without significant change compared to old exam. Mild knee joint effusion not significantly different.
== END | disposition home or self-care (01) ==
LOC: RADMRIMAIN 09:13
PROVIDERS: ATTEND Nurse Practitioner Family
DX: M23.321 Other meniscus derangements, posterior horn of medial meniscus, right knee (principal)

== ENCOUNTER 2021-08-24 21:16 | Emergency (ER) | payer OTHER ==
[2021-08-24] MEDS ORDERED: LIDOCAINE 1% INJ 10MG/ML (20 ML MDV) SQ ONE (22:26)
[2021-08-24] MEDS ORDERED: ACET/COD 300 MG/30 MG STARTER PACK 6 TAB BTL PO STA (22:57)
--- NOTE | 2021-08-24 23:12 | ED ---
Skin/Abscess/FB HPI - General Chief complaint: Skin/Abscess/Foreign Body Stated complaint: skin infection Time Seen by Provider: 08/24/21 22:11 Source: patient, RN notes reviewed Mode of arrival: ambulatory Limitations: no limitations - History of Present Illness Initial comments: Patient is a 21-year-old female that presents to the emergency department complaining of a left neck abscess. She notes she was told by family to come to the emergency room to get looked at for possible MRSA. Patient notes she did try squeezing on her own but nothing came out. She notes that it has gotten significantly bigger over the past couple days. She denied any other issues or complaints. She notes it is extremely tender. She denied any chest pain shortness of breath headache nausea vomiting diarrhea constipation fever fatigue chills. - Related Data Home Medications Medication Instructions Recorded Confirmed Metoprolol Tartrate [Lopressor] 12.5 mg PO BID 07/12/20 07/12/20 Previous Rx's Medication Instructions Recorded Docusate [Colace] 100 mg PO DAILY 10 Days #10 capsule 07/16/20 HYDROcodone/APAP 5-325MG [[place] 1 tab PO Q4HR PRN 3 Days #18 tab 07/16/20 5-325] Doxycycline Monohydrate [Monodox] 100 mg PO Q12HR #20 cap 08/24/21 Allergies Allergy/AdvReac Type Severity Reaction Status Date / Time Penicillins Allergy Rash/Hives Verified 08/24/21 22:07 Review of Systems ROS Statement: Those systems with pertinent positive or pertinent negative responses have been documented in the HPI. ROS Other: All systems not noted in ROS Statement are negative. Past Medical History Past Medical History: No Reported History Additional Past Medical History / Comment(s): SEE DR BUSTAMANTE'S H&P History of Any Multi-Drug Resistant Organisms: None Reported Past Surgical History: Adenoidectomy, Ear Surgery, Hernia Repair, Tonsillectomy Additional Past Surgical History / Comment(s): TUBES PLACED LYNETTE EARS,COLONOSCOPY,EGD Past Anesthesia/Blood Transfusion Reactions: No Reported Reaction Past Psychological History: No Psychological Hx Reported Smoking Status: Former smoker Past Alcohol Use History: Occasional Past Drug Use History: None Reported - Past Family History Mother Family Medical History: No Reported History Father Family Medical History: No Reported History General Exam Limitations: no limitations General appearance: alert, in no apparent distress Head exam: Present: atraumatic, normocephalic, normal inspection Eye exam: Present: normal appearance, PERRL, EOMI. Absent: scleral icterus, conjunctival injection, periorbital swelling ENT exam: Present: normal exam, mucous membranes moist Neck exam: Present: normal inspection, other (Abscess to the lateral left side of the neck measuring approximately 3 cm x 3 cm exquisitely tender.) Respiratory exam: Present: normal lung sounds bilaterally. Absent: respiratory distress, wheezes, rales, rhonchi, stridor Cardiovascular Exam: Present: regular rate, normal rhythm, normal heart sounds. Absent: systolic murmur, diastolic murmur, rubs, gallop, clicks GI/Abdominal exam: Present: soft, normal bowel sounds. Absent: distended, tenderness, guarding, rebound, rigid Extremities exam: Present: normal inspection, full ROM, normal capillary refill. Absent: tenderness, pedal edema, joint swelling, calf tenderness Neurological exam: Present: alert, oriented X3 Psychiatric exam: Present: normal affect, normal mood Skin exam: Present: warm, dry, intact, normal color. Absent: rash Course Vital Signs 08/24/21 22:08 Temperature 99.0 F Pulse Rate 97 Respiratory 20 Rate Blood Pressure 117/75 O2 Sat by Pulse 100 Oximetry Procedures - Incision & Drainage Consent Obtained: verbal consent Site: neck (Left side) Size (cm): 3 Anesthetic Used: lidocaine 1% Amount (mLs): 5 I&D Cleaning Method: Alcohol Wipe Sterile Field Used?: Yes Scalpel Used: #11 Needle Aspiration Performed?: No Irrigation Performed?: No I&D Drainage Obtained: Pus, Blood Culture Obtained?: Yes Patient Tolerated Procedure: well, no complications Medical Decision Making - Medical Decision Making 21-year-old female complaining of abscess to left sided neck. Aerobic wound culture lidocaine ordered. Patient tolerated incision and drainage well. Minimal pus and blood was expressed from the area. Patient will be given antibiotics will be sent to pharmacy. Case discussed with Dr. Taylor, patient discharge home. Disposition Clinical Impression: Abscess Disposition: HOME SELF-CARE Condition: Stable Instructions (If sedation given, give patient instructions): Abscess (ED), Abscess Incision and Drainage (ED) Additional Instructions: Please return to the Emergency Department if symptoms worsen or any other concerns. Follow-up with primary care 1-2 days. Alternate Tylenol and Motrin every 3 hours as needed for aches and pains. Take antibiotics as prescribed until complete. Prescriptions: Doxycycline Monohydrate [Monodox] 100 mg PO Q12HR #20 cap Is patient prescribed a controlled substance at d/c from ED?: No Referrals: Amanuel Aguirre Jr, DO [Primary Care Provider] - 1-2 days Time of Disposition: 23:11
[2021-08-24 23:26] VITALS: BP 110/70; PULSE 91; RESP 17; TEMP 98.5
== END 2021-08-24 23:35 | disposition home or self-care (01) ==
LOC: EC 21:16
DX: L02.11 Cutaneous abscess of neck (principal); Z87.891 Personal history of nicotine dependence; Z72.89 Other problems related to lifestyle
CPT/HCPCS: 87070; 87205; 99282; 10060; J2001

== ENCOUNTER 2021-08-27 00:05 | Emergency (ER) | payer OTHER ==
[2021-08-27 00:09] VITALS: BP 128/83; TEMP 98.1
--- NOTE | 2021-08-27 02:14 | ED ---
General Adult HPI - General Chief complaint: Skin/Abscess/Foreign Body Stated complaint: neck infection Time Seen by Provider: 08/27/21 02:10 Source: patient, family, RN notes reviewed, old records reviewed Mode of arrival: ambulatory Limitations: no limitations - History of Present Illness Initial comments: Well-appearing 20-year-old female presents to the emergency room with a abscess to the left side of her neck its been there since Wednesday. Patient states that started off as like a pimple and she been trying to squeeze and could not get any drainage. She came to the emergency room on August 24 and had an I&D was put on doxycycline. She seen her primary care doctor yesterday and changed her to Bactrim. She states that he continues to be tender in painful and draining when she feels sick. She denies any fevers. -: days(s) (4) Location: neck (left side) Severity scale (1-10): 4 Quality: constant Consistency: constant Improves with: none Worsens with: other (palpation) Associated Symptoms: denies other symptoms Treatments Prior to Arrival: other (bactrim) - Related Data Home Medications Medication Instructions Recorded Confirmed Metoprolol Tartrate [Lopressor] 12.5 mg PO BID 07/12/20 07/12/20 Previous Rx's Medication Instructions Recorded Docusate [Colace] 100 mg PO DAILY 10 Days #10 capsule 07/16/20 HYDROcodone/APAP 5-325MG [[place] 1 tab PO Q4HR PRN 3 Days #18 tab 07/16/20 5-325] Doxycycline Monohydrate [Monodox] 100 mg PO Q12HR #20 cap 08/24/21 Allergies Allergy/AdvReac Type Severity Reaction Status Date / Time Penicillins Allergy Rash/Hives Verified 08/27/21 00:09 Review of Systems ROS Statement: Those systems with pertinent positive or pertinent negative responses have been documented in the HPI. ROS Other: All systems not noted in ROS Statement are negative. Past Medical History Past Medical History: No Reported History Additional Past Medical History / Comment(s): SEE DR BUSTAMANTE'S H&P History of Any Multi-Drug Resistant Organisms: None Reported Past Surgical History: Adenoidectomy, Ear Surgery, Hernia Repair, Tonsillectomy Additional Past Surgical History / Comment(s): TUBES PLACED LYNETTE EARS,COLONOSCOPY,EGD Past Anesthesia/Blood Transfusion Reactions: No Reported Reaction Past Psychological History: No Psychological Hx Reported Smoking Status: Former smoker Past Alcohol Use History: Occasional Past Drug Use History: None Reported - Past Family History Mother Family Medical History: No Reported History Father Family Medical History: No Reported History General Exam Limitations: no limitations General appearance: alert, in no apparent distress Head exam: Present: atraumatic, normocephalic, normal inspection Eye exam: Present: normal appearance, EOMI Neck exam: Present: tenderness (Left-sided neck approximately 2 x 3 cm abscess indurated with a creamy purulent drainage) Respiratory exam: Present: normal lung sounds bilaterally. Absent: respiratory distress, wheezes, rales, rhonchi, stridor Cardiovascular Exam: Present: tachycardia Extremities exam: Present: normal inspection, full ROM, normal capillary refill. Absent: tenderness, pedal edema, joint swelling, calf tenderness Neurological exam: Present: alert, oriented X3, normal gait Psychiatric exam: Present: normal affect, normal mood Skin exam: Present: warm, dry, intact, normal color. Absent: rash, cyanosis, diaphoretic, petechiae, pallor Course Vital Signs 08/27/21 00:06 Temperature 98.1 F Pulse Rate 107 H Respiratory 20 Rate Blood Pressure 128/83 O2 Sat by Pulse 99 Oximetry Medical Decision Making - Medical Decision Making Well-appearing 20-year-old female presents to the emergency room with a abscess to the left side of her neck since Wednesday that started off as a pimple. She had I&D in the emergency room on August 24 and was put on doxycycline. She seen her primary care doctor yesterday and he changed her to Bactrim to treat MRSA. Patient denies any fevers. The abscess is draining. White blood cell count 6.0. Patient has been afebrile. She is currently taking Bactrim. She was directed to continue the Bactrim and follow up with her primary care doctor this week. She was also directed to take Bactrim with food or milk to prevent upset stomach - Lab Data Result diagrams: 08/27/21 02:23 Lab Results 08/27/21 Range/Units 02:23 WBC 6.0 (3.8-10.6) k/uL RBC 4.43 (3.80-5.40) m/uL Hgb 13.7 (11.4-16.0) gm/dL Hct 40.5 (34.0-46.0) % MCV 91.4 (80.0-100.0) fL MCH 30.9 (25.0-35.0) pg MCHC 33.8 (31.0-37.0) g/dL RDW 12.9 (11.5-15.5) % Plt Count 223 (150-450) k/uL MPV 8.6 Neutrophils % 65 % Lymphocytes % 25 % Monocytes % 6 % Eosinophils % 1 % Basophils % 0 % Neutrophils # 3.9 (1.3-7.7) k/uL Lymphocytes # 1.5 (1.0-4.8) k/uL Monocytes # 0.3 (0-1.0) k/uL Eosinophils # 0.1 (0-0.7) k/uL Basophils # 0.0 (0-0.2) k/uL Disposition Clinical Impression: Abscess Disposition: HOME SELF-CARE Condition: Good Instructions (If sedation given, give patient instructions): Abscess (ED) Additional Instructions: Continue the Bactrim with food or milk to prevent upset stomach. Warm moist compresses twice a day to site. Follow-up with him this week. Return to the emergency room with any new or worsening symptoms including fever or increased pain. Is patient prescribed a controlled substance at d/c from ED?: No Referrals: Amanuel Aguirre Jr, DO [Primary Care Provider] - 1-2 days Time of Disposition: 03:03
[2021-08-27 02:45] LABS: Basophils % (A) 0 %; Eosinophils # (A) 0.1 k/uL (0-0.7); Eosinophils % (A) 1 %; HCT 40.5 % (34.0-46.0); HGB 13.7 gm/dL (11.4-16.0); Lymphocytes # (A) 1.5 k/uL (1.0-4.8); Lymphocytes % (A) 25 %; MCH 30.9 pg (25.0-35.0); MCHC 33.8 g/dL (31.0-37.0); MCV 91.4 fL (80.0-100.0); Mean Platelet Volume 8.6; Monocytes # (A) 0.3 k/uL (0-1.0); Monocytes % (A) 6 %; Neutrophils # (A) 3.9 k/uL (1.3-7.7); Neutrophils % (A) 65 %; Platelet Count 223 k/uL (150-450); RBC 4.43 m/uL (3.80-5.40); RDW 12.9 % (11.5-15.5)
[2021-08-27 03:30] LABS: ALT 18 U/L (4-34); AST 24 U/L (14-36); African American GFR (CKD) >90 (>60 ml/min/1.73 sqM); Albumin 4.6 g/dL (3.5-5.0); Alkaline Phosphatase 58 U/L (38-126); Anion Gap 9 mmol/L; Blood Urea Nitrogen 9 mg/dL (7-17); Calcium 9.4 mg/dL (8.4-10.2); Carbon Dioxide 27 mmol/L (22-30); Chloride 103 mmol/L (98-107); Glucose 105 mg/dL (74-99); Non-African American GFR(CKD) >90 (>60 ml/min/1.73 sqM); Potassium 3.5 mmol/L (3.5-5.1); Sodium 139 mmol/L (137-145); Total Bilirubin 0.4 mg/dL (0.2-1.3); Total Protein 7.4 g/dL (6.3-8.2)
[2021-08-27 03:33] VITALS: PULSE 68; RESP 16
== END 2021-08-27 03:35 | disposition home or self-care (01) ==
LOC: EC 00:05
DX: L02.11 Cutaneous abscess of neck (principal); Z88.0 Allergy status to penicillin; Z90.89 Acquired absence of other organs; Z87.891 Personal history of nicotine dependence
CPT/HCPCS: 36415; 80053; 85025; 87040; 99283

== ENCOUNTER 2021-10-29 13:22 | Emergency (ER) | payer OTHER ==
[2021-10-29 13:42] VITALS: TEMP 99.5
[2021-10-29 14:03] LABS: Appearance,Urine Clear (Clear); Bacteria,Urine Rare /hpf; Bilirubin,Urine Negative (Negative); Blood,Urine Moderate (Negative); Color,Urine Light Yellow; Glucose,Urine (UA) Negative (Negative); Hyaline Casts,Urine 1 /lpf (0-2); Ketones,Urine Negative (Negative); Leukocyte Esterase,Urine Negative (Negative); Mucus,Urine Rare /hpf; Nitrite,Urine Negative (Negative); Protein,Urine Negative (Negative); RBC,Urine <1 /hpf (0-5); Squamous Epithelial Cell,Urine 3 /hpf (0-4); Urobilinogen,Urine <2.0 mg/dL (<2.0); WBC,Urine 1 /hpf (0-5)
[2021-10-29 15:43] LABS: Basophils % (A) 1 %; Eosinophils # (A) 0.1 k/uL (0-0.7); Eosinophils % (A) 2 %; HCT 39.7 % (34.0-46.0); HGB 13.6 gm/dL (11.4-16.0); Lymphocytes # (A) 1.6 k/uL (1.0-4.8); Lymphocytes % (A) 33 %; MCH 31.6 pg (25.0-35.0); MCHC 34.1 g/dL (31.0-37.0); MCV 92.7 fL (80.0-100.0); Mean Platelet Volume 7.9; Monocytes # (A) 0.3 k/uL (0-1.0); Monocytes % (A) 5 %; Neutrophils # (A) 2.7 k/uL (1.3-7.7); Neutrophils % (A) 57 %; Platelet Count 243 k/uL (150-450); RBC 4.28 m/uL (3.80-5.40); RDW 13.2 % (11.5-15.5); WBC 4.8 k/uL (3.8-10.6)
[2021-10-29 15:50] LABS: Prothrombin Time 10.6 sec (9.0-12.0)
[2021-10-29 15:58] LABS: ALT 13 U/L (4-34); AST 23 U/L (14-36); African American GFR (CKD) >90 (>60 ml/min/1.73 sqM); Albumin 4.5 g/dL (3.5-5.0); Alkaline Phosphatase 48 U/L (38-126); Blood Urea Nitrogen 8 mg/dL (7-17); Calcium 9.1 mg/dL (8.4-10.2); Carbon Dioxide 23 mmol/L (22-30); Glucose 93 mg/dL (74-99); Non-African American GFR(CKD) >90 (>60 ml/min/1.73 sqM); Potassium 3.8 mmol/L (3.5-5.1); Sodium 139 mmol/L (137-145); Total Bilirubin 0.5 mg/dL (0.2-1.3); Total Protein 7.3 g/dL (6.3-8.2)
[2021-10-29 16:21] LABS: Anion Gap 9 mmol/L; Chloride 107 mmol/L (98-107)
--- NOTE | 2021-10-29 16:30 | US ---
EXAMINATION TYPE: OB US < 14 weeks, TA US and Transvaginal US DATE OF EXAM: 10/29/2021 4:06 PM COMPARISON: NONE CLINICAL HISTORY: pain. EC patient with vaginal bleeding and cramping today; positive beta-hCG t est. EXAM PERFORMED: Transvaginal (TV) and Transabdominal (TA) EXAM MEASUREMENTS: GESTATIONAL AGE / DATING Physician Established: Not yet established Dates by LMP: (4 weeks/6 days) EDC: 07/02/2022 Dates by First Scan: No previous. Dates by Current Scan: No IUP or ectopic is seen. MATERNAL ANATOMY Uterus: 9.3 x 4.8 x 4.1cm Right Ovary: 3.0 x 2.2 x 1.6cm Left Ovary: 2.8 x 1.7 x 1.3cm Post CDS / Adnexa: wnl Presence of free fluid: thin, linear hypoechoic area is seen near C section scar = 2.2 x 0.6 x 0.2cm. Presence of corpus luteal cyst: may be in right ovary = 1.6 x 1.8 x 1.1cm Presence of subchorionic bleed: no GESTATION / SURVEY No IUP or ectopic is seen at this time Date of LMP: 09/25/2021 Beta HcG (if available): Urine, Qualitative Hcg is detected today. No IUP or ectopic is seen. Anteverted uterus. Endometrium thickened to 7 mm. No gestational sac, yolk sac, or pole identif ied. Tiny curvilinear fluid in the scar. No free fluid in the pelvis. Both ovaries identified. Right ovary has a 1.8 cm peripheral hypervascular hypoechoic lesion could re flect corpus luteal cyst. No suspicious extra ovarian adnexal mass. IMPRESSION: Findings likely reflect too early to visualize intrauterine but spontaneous abo rtion is in differential and ectopic is not excluded. Serial beta hCG and ultrasound follow -up should be considered based on clinical correlation.
[2021-10-29 17:16] VITALS: BP 119/74; PULSE 87; RESP 18
--- NOTE | 2021-10-29 17:30 | ED ---
Female Urogenital HPI - General Chief complaint: Vaginal Bleeding Stated complaint: early , bleeding & cramping Time Seen by Provider: 10/29/21 15:17 Source: patient Mode of arrival: ambulatory Limitations: no limitations - History of Present Illness Initial comments: 21-year-old female presents emergency Department with vaginal bleeding. States that she had 2 positive home tests. She awoke this morning was having some bright red bleeding with suprapubic cramping. States that the bleeding has significantly slowed down since she came in to the hospital. Patient is . Last menstrual cycle September 25. She is supposed to see Dr. Hewitt, first appointment is on the . Denies history of ectopic. No changes in her urin ation to include burning, blood or retention. Denies any changes in her bowel habits. Denies concern for sexually transmitted infections. No other alleviating, precipitating or modifying factors - Related Data Home Medications Medication Instructions Recorded Confirmed No Known Home Medications 10/29/21 10/29/21 Allergies Allergy/AdvReac Type Severity Reaction Status Date / Time Penicillins Allergy Rash/Hives Verified 10/29/21 16:29 Review of Systems ROS Statement: Those systems with pertinent positive or pertinent negative responses have been documented in the HPI. ROS Other: All systems not noted in ROS Statement are negative. Past Medical History Past Medical History: No Reported History Additional Past Medical History / Comment(s): SEE DR BUSTAMANTE'S H&P History of Any Multi-Drug Resistant Organisms: None Reported Past Surgical History: Adenoidectomy, Ear Surgery, Hernia Repair, Tonsillectomy Additional Past Surgical History / Comment(s): TUBES PLACED LYNETTE EARS,COLONOSCOPY,EGD Past Anesthesia/Blood Transfusion Reactions: No Reported Reaction Past Psychological History: No Psychological Hx Reported Smoking Status: Former smoker Past Alcohol Use History: Occasional Past Drug Use History: None Reported - Past Family History Mother Family Medical History: No Reported History Father Family Medical History: No Reported History General Exam Limitations: no limitations Course Vital Signs 10/29/21 10/29/21 13:39 17:11 Temperature 99.5 F Pulse Rate 108 H 87 Respiratory 20 18 Rate Blood Pressure 115/69 119/74 O2 Sat by Pulse 99 97 Oximetry Medical Decision Making - Medical Decision Making Upon arrival patient was placed into room 29. A thorough history and physical exam was performed. IV access established and laboratory studies were conducted. Hemoglobin 13.6. Beta Quant is only 157. Patient has rare bacteria in her urine however no other findings. Ultrasound is performed which demonstrates no true uterine . The results are discussed with the patient. Instructed that she must follow-up in 48 hours for repeat beta. She is given an outpatient prescription. These results will be sent to her [employer]. She needs to follow up with her. If her values are falling she is having a miscarriage and a must go down to 0. If her betas are trending up and she needs to have an ultrasound to confirm that the is inside the uterus. Did inform her of the concern for possible ectopic. Patient understood this. She is asked to return for any new or worsening symptoms. Patient's blood type is O+. Patient discharged home in stable condition - Lab Data Result diagrams: 10/29/21 15:34 10/29/21 15:34 Lab Results 10/29/21 10/29/21 10/29/21 Range/Units 13:51 13:51 15:34 WBC 4.8 (3.8-10.6) k/uL RBC 4.28 (3.80-5.40) m/uL Hgb 13.6 (11.4-16.0) gm/dL Hct 39.7 (34.0-46.0) % MCV 92.7 (80.0-100.0) fL MCH 31.6 (25.0-35.0) pg MCHC 34.1 (31.0-37.0) g/dL RDW 13.2 (11.5-15.5) % Plt Count 243 (150-450) k/uL MPV 7.9 Neutrophils % 57 % Lymphocytes % 33 % Monocytes % 5 % Eosinophils % 2 % Basophils % 1 % Neutrophils # 2.7 (1.3-7.7) k/uL Lymphocytes # 1.6 (1.0-4.8) k/uL Monocytes # 0.3 (0-1.0) k/uL Eosinophils # 0.1 (0-0.7) k/uL Basophils # 0.0 (0-0.2) k/uL PT (9.0-12.0) sec INR (<1.2) Sodium (137-145) mmol/L Potassium (3.5-5.1) mmol/L Chloride (98-107) mmol/L Carbon Dioxide (22-30) mmol/L Anion Gap mmol/L BUN (7-17) mg/dL Creatinine (0.52-1.04) mg/dL Est GFR (CKD-EPI)AfAm (>60 ml/min/1.73 sqM) Est GFR (CKD-EPI)NonAf (>60 ml/min/1.73 sqM) Glucose (74-99) mg/dL Calcium (8.4-10.2) mg/dL Total Bilirubin (0.2-1.3) mg/dL AST (14-36) U/L ALT (4-34) U/L Alkaline Phosphatase (38-126) U/L Total Protein (6.3-8.2) g/dL Albumin (3.5-5.0) g/dL HCG, Quant mIU/mL Urine Color Light Yellow Urine Appearance Clear (Clear) Urine pH 6.0 (5.0-8.0) Ur Specific [place] 1.010 (1.001-1.035) Urine Protein Negative (Negative) Urine Glucose (UA) Negative (Negative) Urine Ketones Negative (Negative) Urine Blood Moderate H (Negative) Urine Nitrite Negative (Negative) Urine Bilirubin Negative (Negative) Urine Urobilinogen <2.0 (<2.0) mg/dL Ur Leukocyte Esterase Negative (Negative) Urine RBC <1 (0-5) /hpf Urine WBC 1 (0-5) /hpf Ur Squamous Epith Cells 3 (0-4) /hpf Urine Bacteria Rare H (None) /hpf Hyaline Casts 1 (0-2) /lpf Urine Mucus Rare H (None) /hpf Urine HCG, Qual Detected (Not Detectd) Blood Type Blood Type Recheck Bld Type Recheck Status 10/29/21 10/29/21 10/29/21 Range/Units 15:34 15:34 16:08 WBC (3.8-10.6) k/uL RBC (3.80-5.40) m/uL Hgb (11.4-16.0) gm/dL Hct (34.0-46.0) % MCV (80.0-100.0) fL MCH (25.0-35.0) pg MCHC (31.0-37.0) g/dL RDW (11.5-15.5) % Plt Count (150-450) k/uL MPV Neutrophils % % Lymphocytes % % Monocytes % % Eosinophils % % Basophils % % Neutrophils # (1.3-7.7) k/uL Lymphocytes # (1.0-4.8) k/uL Monocytes # (0-1.0) k/uL Eosinophils # (0-0.7) k/uL Basophils # (0-0.2) k/uL PT 10.6 (9.0-12.0) sec INR 1.0 (<1.2) Sodium 139 (137-145) mmol/L Potassium 3.8 (3.5-5.1) mmol/L Chloride 107 (98-107) mmol/L Carbon Dioxide 23 (22-30) mmol/L Anion Gap 9 mmol/L BUN 8 (7-17) mg/dL Creatinine 0.67 (0.52-1.04) mg/dL Est GFR (CKD-EPI)AfAm >90 (>60 ml/min/1.73 sqM) Est GFR (CKD-EPI)NonAf >90 (>60 ml/min/1.73 sqM) Glucose 93 (74-99) mg/dL Calcium 9.1 (8.4-10.2) mg/dL Total Bilirubin 0.5 (0.2-1.3) mg/dL AST 23 (14-36) U/L ALT 13 (4-34) U/L Alkaline Phosphatase 48 (38-126) U/L Total Protein 7.3 (6.3-8.2) g/dL Albumin 4.5 (3.5-5.0) g/dL HCG, Quant 157.0 mIU/mL Urine Color Urine Appearance (Clear) Urine pH (5.0-8.0) Ur Specific [place] (1.001-1.035) Urine Protein (Negative) Urine Glucose (UA) (Negative) Urine Ketones (Negative) Urine Blood (Negative) Urine Nitrite (Negative) Urine Bilirubin (Negative) Urine Urobilinogen (<2.0) mg/dL Ur Leukocyte Esterase (Negative) Urine RBC (0-5) /hpf Urine WBC (0-5) /hpf Ur Squamous Epith Cells (0-4) /hpf Urine Bacteria (None) /hpf Hyaline Casts (0-2) /lpf Urine Mucus (None) /hpf Urine HCG, Qual (Not Detectd) Blood Type O Positive Blood Type Recheck O Pos Bld Type Recheck Status No Disposition Clinical Impression: Threatened miscarriage, Vaginal bleeding Disposition: HOME SELF-CARE Condition: Stable Instructions (If sedation given, give patient instructions): Threatened Miscarriage (ED) Additional Instructions: Please have repeat blood work done in 2 days. Please come to the outpatient lab to have it drawn. Your results will be sent to your OB. You need to have a repeat ultrasound in 1 week if your hormone is going up. If your hormone falls, it must be followed until it is 0. Return for any new or worsening symptoms Is patient prescribed a controlled substance at d/c from ED?: No Referrals: Amanuel Aguirre Jr, [Primary Care Provider] - 1-2 days Lolis Hewitt MD [REFERRING] - 1-2 days Time of Disposition: 17:29
== END 2021-10-29 17:34 | disposition home or self-care (01) ==
LOC: EC 13:22
DX: O20.0 Threatened abortion (principal); Z3A.00 Weeks of gestation of pregnancy not specified; Z87.891 Personal history of nicotine dependence; Z72.89 Other problems related to lifestyle
CPT/HCPCS: 36415; 76801; 76817; 80053; 81001; 81025; 84702; 85025; 85610; 86900; 86901; 99284

== ENCOUNTER → 2021-10-31 | Outpatient (CLI) | payer OTHER | END | disposition home or self-care (01) | LOC: LABWHC1 08:53 | PROVIDERS: ATTEND Emergency Medicine | DX: O20.0 Threatened abortion (principal); Z3A.00 Weeks of gestation of pregnancy not specified | CPT/HCPCS: 36415; 84702 ==

== ENCOUNTER → 2021-11-14 | Outpatient (CLI) | payer OTHER | END | disposition home or self-care (01) | LOC: LABWHC1 08:47 | PROVIDERS: ATTEND Obstetrics & Gynecology | DX: O02.1 Missed abortion (principal); Z3A.00 Weeks of gestation of pregnancy not specified | CPT/HCPCS: 36415; 84702 ==

== ENCOUNTER → 2022-01-30 | Outpatient (CLI) | payer OTHER | END | disposition home or self-care (01) | LOC: LABWHC1 14:08 | PROVIDERS: ATTEND Obstetrics & Gynecology | DX: O03.9 Complete or unspecified spontaneous abortion without complication (principal); Z3A.00 Weeks of gestation of pregnancy not specified | CPT/HCPCS: 36415; 84702 ==

== ENCOUNTER 2023-02-10 16:22 | Emergency (ER) | payer OTHER ==
--- NOTE | 2023-02-10 16:54 | XR ---
EXAMINATION TYPE: XR hand complete RT DATE OF EXAM: 02/10/2023 4:48 PM INDICATION: Patient age:Female; 22 years old; Reason for study: pain,swelling; PHH. COMPARISON: None TECHNIQUE: Frontal, lateral and oblique views of the right hand were obtained. FINDINGS: Normal alignment of the visualized joints. No acute osseous pathology is identified. No e vidence of soft tissue swelling. No radiopaque foreign body. IMPRESSION: No acute osseous pathology.
--- NOTE | 2023-02-10 17:27 | ED ---
Upper Extremity HPI - General Chief Complaint: Extremity Injury, Upper Stated Complaint: right hand injury Time Seen by Provider: 02/10/23 16:50 Source: patient, RN notes reviewed Mode of arrival: ambulatory Limitations: no limitations - History of Present Illness Initial Comments: This is a 22-year-old female who presents to the emergency department for right hand pain. States that she was carrying a laundry basket last night and accidentally hit her hand on the door frame. She has since had increasing pain and swelling to the right hand. She is still able to move it. She has not yet taken anything for her pain. She has a history of osteogenesis imperfecta, however she states that this is currently in remission and has been for several years. Of note, she is 17 weeks . Denies any fevers, chills, sore throat, cough, dyspnea, chest pain, palpitations, abdominal pain, nausea, vomiting, diarrhea, back pain, or headaches. MD Complaint: Injury to:: right, hand - Related Data Home Medications Medication Instructions Recorded Confirmed No Known Home Medications 02/10/23 02/10/23 Allergies Allergy/AdvReac Type Severity Reaction Status Date / Time Penicillins Allergy Rash/Hives Verified 02/10/23 16:27 Review of Systems ROS Statement: Those systems with pertinent positive or pertinent negative responses have been documented in the HPI. ROS Other: All systems not noted in ROS Statement are negative. 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 Absent: respiratory distress, wheezes, rales, rhonchi, stridor Cardiovascular Exam: Present: regular rate, normal rhythm, normal heart sounds. Absent: systolic murmur, diastolic murmur, rubs, gallop, clicks Extremities exam: Present: other (Minor tenderness and swelling to the dorsal aspect of the right hand. Full active and passive range of motion. 2+ radial pulses. Capillary refill less than 1 second.) Neurological exam: Present: alert, oriented X3, CN II-XII intact Psychiatric exam: Present: normal affect, normal mood Skin exam: Present: warm, dry, intact, normal color. Absent: rash Course Vital Signs 02/10/23 02/10/23 16:23 17:43 Temperature 97.7 F 97.8 F Pulse Rate 97 74 Respiratory 20 14 Rate Blood Pressure 133/81 112/74 O2 Sat by Pulse 99 99 Oximetry Medical Decision Making - Medical Decision Making This is a 22-year-old female who presents to the emergency department for right hand pain. Was pt. sent in by a medical professional or institution? @ -No Did you speak to anyone other than the patient for history? @ -No Did you review nursing and triage notes? @ -Yes, and I agree, it is accurate with regards to the patient's symptoms. Were old charts reviewed? @ -No Differential Diagnosis? @ -Differential Hand Pain: Fracture, dislocation, contusion, sprain, this is not meant to be an all- inclusive list. EKG interpreted by me (3pts min.)? @ -Not obtained X-rays interpreted by me (1pt min.)? @ -X-ray of the left hand obtained. My interpretation identifies no acute fractures or dislocations. CT interpreted by me (1pt min.)? @ -Not obtained U/S interpreted by me (1pt. min.)? @ -Not obtained What testing was considered but not performed? (CT, X-rays, U/S, labs)? Why? @ -None What meds were considered but not given? Why? @ -None Did you discuss the management of the patient with other professionals? @ -No Did you reconcile home meds? @ -No Was smoking cessation discussed for >3mins.? @ -No Was critical care preformed (if so, how long)? @ -No Were there social determinants of health that impacted care today? How? (Homelessness, low income, unemployed, alcoholism, drug addiction, transportation, low edu. Level, literacy, decrease access to med. care, alf, rehab)? @ -No Was there de-escalation of care discussed even if they declined? (Discuss DNR or withdrawal of care, Hospice)? @ -No What co-morbidities impacted this encounter? (DM, HTN, Smoking, COPD, CAD, Cancer, CVA, Hep., AIDS, mental health diagnosis, sleep apnea, morbid obesity)? @ - Was patient admitted / discharged? @ -Discharged. Patient is 17 weeks , however she requests to proceed with an x-ray of the right hand. Risks of radiation exposure to the fetus were reviewed. Patient expresses understanding and wishes to proceed with imaging. X-ray of the right hand obtained revealing no acute findings. Advised that this is most likely a contusion. Advised Tylenol as need for pain relief and applying ice for 15-20 minutes every 2-3 hours. This was bandaged with an Francisco wrap, which I advised she can continue to do for further management of symptoms. Undiagnosed new problem with uncertain prognosis? @ -None Drug Therapy requiring intensive monitoring for toxicity (Heparin, Nitro, Insulin, Cardizem)? @ -None Were any procedures done? @ -None Diagnosis/symptom? @ -Right hand contusion Acute, or Chronic, or Acute on Chronic? @ -Acute Uncomplicated (without systemic symptoms) or Complicated (systemic symptoms)? @ -Uncomplicated Side effects of treatment? @ -None Exacerbation, Progression, or Severe Exacerbation] @ -Not applicable Poses a threat to life or bodily function? @ -No Return precautions reviewed in depth, the patient is instructed to return to the emergency department with any new, worsening, or concerning symptoms. Patient verbalized understanding. This case was discussed in detail with the attending ED physician, Dr. Lora. Presentation, findings, and treatment plan discussed in detail as well. - Radiology Data Radiology results: report reviewed, image reviewed Disposition Clinical Impression: Contusion of right hand Disposition: HOME SELF-CARE Instructions (If sedation given, give patient instructions): Contusion in Adults (ED) Additional Instructions: Return to the emergency department with any new, worsening, or concerning symptoms. Take Tylenol as needed for pain relief. Apply ice for 15-20 minutes every 2-3 hours. You can keep it bandaged with an Francisco wrap or purchase an [id number] brace if you find it beneficial. Follow up with your primary care provider in 1-2 days. Is patient prescribed a controlled substance at d/c from ED?: No Referrals: Amanuel Aguirre Jr, DO [Primary Care Provider] - 1-2 days
[2023-02-10 17:45] VITALS: BP 112/74; PULSE 74; RESP 14; TEMP 97.8
== END 2023-02-10 17:46 | disposition home or self-care (01) ==
LOC: EC 16:22 → MERGE 16:22 → EC 17:46
DX: O9A.212 Injury, poisoning and certain other consequences of external causes complicating pregnancy, second trimester (principal); S60.221A Contusion of right hand, initial encounter; Z88.0 Allergy status to penicillin; Z3A.17 17 weeks gestation of pregnancy; W22.09XA Striking against other stationary object, initial encounter
CPT/HCPCS: 99283

== ENCOUNTER 2023-06-27 11:25 | Outpatient (CLI) | payer OTHER ==
[2023-06-27 12:40] LABS: Appearance,Urine Clear (Clear); Bilirubin,Urine Negative (Negative); Blood,Urine Negative (Negative); Color,Urine Colorless; Glucose,Urine (UA) Negative (Negative); Ketones,Urine Negative (Negative); Leukocyte Esterase,Urine Negative (Negative); Nitrite,Urine Negative (Negative); Protein,Urine Negative (Negative); Specific Gravity,Urine 1.006 (1.001-1.035); Urobilinogen,Urine <2.0 mg/dL (<2.0)
[2023-06-27 14:21] VITALS: BP 122/75; PULSE 96; RESP 16; TEMP 97.4
--- NOTE | 2023-06-29 16:34 | P.MSEPDOC ---
Presenting Problems - Arrival Data Date of Arrival on Unit: 06/27/23 Time of Arrival on Unit: 11:25 Mode of Transport: Wheelchair - Complaint OB-Reason for Admission/Chief Complaint: Possible Onset of Labor Medical History - Information : 2 Para: 1 Term: 1 : 0 Abortions: Spontaneous or Elective: 0 Number of Living Children: 1 - Gestational Age Gestational Age by BRENDON (wks/days): 37 Weeks and 2 Days - History Complications: Prior Review of Systems - Review of Systems Constitutional: No problems Breast: No problems ENT: No problems Cardiovascular: No problems Respiratory: No problems Gastrointestinal: No problems Genitourinary: No problems Musculoskeletal: No problems Neurological: No problems Skin: No problems Vital Signs - Temperature Temperature: 97.4 F Temperature Source: Temporal Artery Scan - Pulse Right Sitting Brachial Pulse Rate: 96 Pulse Assessment Method: Automatic Cuff - Respirations Respiratory Rate: 16 Oxygen Delivery Method: Room Air O2 Sat by Pulse Oximetry: 97 - Blood Pressure Right Arm Sitting Blood Pressure: 122/75 Blood Pressure Mean: 90 Blood Pressure Source: Automatic Cuff Medical Screen Scoring - Cervical Exam Dilation (cm): 1 Effacement (%): 20 Station: -3 Membranes: Intact - Uterine Contractions Frequency From (mins): 1 Frequency To (mins): 10 Duration From (seconds): 20 Duration To (seconds): 60 Intensity: Mild Resting: Soft to palpation - Assessment - Baby A Baseline FHR: 125 Heart Rate - NICHD Category: Category I (Normal) NST: Reactive Physician Notification - Physician Notified Physician Notified Date: 06/27/23 Physician Notified Time: 12:50 Physician: Kelli Sanchez New Order Received: Yes (monitor additional hour) Maternal Triage Index - Maternal Triage Index Presenting for scheduled procedure w/no complaint: No - Stat/Priority 1 Stat Priority 1: No - Urgent/Priority 2 Urgent Priority 2: No - Prompt/Priority 3 Prompt Priority 3: Yes Criteria Met for Priority 3: previous section Disposition - Disposition OB Disposition: Discharge to home Discharge Date: 06/27/23 Discharge Time: 14:00 I agree with the RN Medical Screening Exam: Yes Case reviewed; plan agreed upon as documented in EMR&OBIX.: Yes Diagnosis: RELATED CONDITIONS, UNSPECIFIED, THIRD TRIMESTER
== END 2023-06-27 14:00 | disposition home or self-care (01) ==
LOC: FBPOP 11:25
PROVIDERS: ATTEND Obstetrics & Gynecology Obstetrics
DX: O47.1 False labor at or after 37 completed weeks of gestation (principal); O99.333 Smoking (tobacco) complicating pregnancy, third trimester; F17.200 Nicotine dependence, unspecified, uncomplicated; Z3A.37 37 weeks gestation of pregnancy; Z88.0 Allergy status to penicillin
CPT/HCPCS: 59025; 81003; G0463; 99213

== ENCOUNTER 2023-07-03 23:19 | Inpatient (IN) | payer OTHER ==
[2023-07-04] MEDS ORDERED: LACTATED RINGERS 1,000 ML IV ONE (00:56)
[2023-07-04] MEDS ORDERED: GENTAMICIN 320 MG in SODIUM CHLORIDE 0.9% 100 ML IVPB ONE (01:33)
[2023-07-04] MEDS ORDERED: CLINDAMYCIN 900 MG in DEXTROSE 5% IN WATER 50 ML IVPB ONE ×2 (01:33)
[2023-07-04] MEDS ORDERED: miSOPROStoL 200 MCG TAB PO PRN (01:33)
[2023-07-04] MEDS ORDERED: METHYLERGONOVINE 0.2 MG/ML 1 ML AMP IM PRN (01:33)
[2023-07-04] MEDS ORDERED: CITRIC ACID-SODIUM CITRATE 15 ML CUP PO ONE (01:33)
[2023-07-04] MEDS ORDERED: TRANEXAMIC 1,000 MG/100ML-NACL 1,000 MG in EMPTY BAG 1 BAG IV PRN (01:33)
[2023-07-04] MEDS ORDERED: CARBOPROST TROMETHAMINE 250 MCG/ML 1 ML AMP IM PRN (01:33)
[2023-07-04] MEDS ORDERED: OXYTOCIN 10 UNIT/ML 1 ML VIAL IM PRN (01:33)
[2023-07-04] MEDS ORDERED: OXYTOCIN 30 UNITS/500 ML NS 30 UNIT in SALINE 1 500ML.BAG IV SCH (01:45)
--- NOTE | 2023-07-04 01:56 | P.HPOB ---
History of Present Illness H&P Date: 07/04/23 Chief Complaint: 38+ weeks, previous section, active labor The patient is a 23-year-old 4 para 10-1 admitted at 38+ weeks as established by last menstrual period and confirmed by seven-week ultrasound. She is admitted in early active labor with all signs reassuring, category 1 heart rate tracing. Her has been uncomplicated though she has a known diagnosis of osteogenesis imperfecta requiring delivery and has had a previous section under the same circumstances. She has been cervical change in triage and requires repeat section. Group B strep status is negative. Obstetrical history: 4 para 10-1 with 1 previous section secondary to the diagnosis of osteogenesis imperfecta. Current statistics are listed in history of present illness. EDC of 07/16/2023 was established by last menstrual period and confirmed by seven-week ultrasound. Laboratory workup done traits of blood type of O+ with a negative antibody screen. Rubella status is immune. The remainder of the laboratory workup was within normal limits. One hour Glucola was normal and group B strep status is negative. Gynecologic history: Unremarkable with no history of any infections to include STDs. Review of Systems Review of systems is confined to history of present illness. 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 History of Any Multi-Drug Resistant Organisms: None Reported Past Surgical History: Adenoidectomy, Ear Surgery, Hernia Repair, Tonsillectomy Additional Past Surgical History / Comment(s): TUBES PLACED LYNETTE EARS,COLONOSCOPY,EGD Past Anesthesia/Blood Transfusion Reactions: No Reported Reaction Smoking Status: Former smoker - Past Family History Mother Family Medical History: No Reported History Father Family Medical History: No Reported History Medications and Allergies Home Medications Medication Instructions Recorded Confirmed Type Aspirin [Adult Low Dose Aspirin EC] 81 mg PO DAILY 05/20/23 07/03/23 History Cholecalciferol (Vitamin D3) 1,250 mcg PO DAILY 05/20/23 07/03/23 History [Vitamin D3] Vit No.179/Iron/Folic 1 tab PO DAILY 05/20/23 07/03/23 History [ Tablet] Allergies Allergy/AdvReac Type Severity Reaction Status Date / Time Penicillins Allergy Rash/Hives Verified 07/03/23 23:46 Exam Intake and Output 07/03/23 07/03/23 07/04/23 14:59 22:59 06:59 Other: Weight 87.543 kg In general, this is a well-developed, well-nourished white female in discomfort as she is in early active labor. Her heart has a regular rhythm and rate without murmur. Her lungs clear to auscultation bilaterally in all adams. Her abdomen is gravid, nondistended, has normal active bowel sounds, soft, nontender, and without any palpable masses aside from the uterine fundus. Her extremities are without any cyanosis, clubbing, or edema and are nontender to palpation bilaterally. Digital cervical examination demonstrates her cervix to be 2+ centimeters dilated, 60% effaced, with the vertex in presentation at -2 station. This is a change from her initial presentation of 1 cm of dilation and 50% effaced. Assessment and Plan (1) Previous section Current Visit: Yes Status: Acute Code(s): Z98.891 - HISTORY OF UTERINE SCAR FROM PREVIOUS SURGERY SNOMED Code(s): 456742933 (2) Osteogenesis imperfecta Current Visit: Yes Status: Acute Code(s): Q78.0 - OSTEOGENESIS IMPERFECTA SNOMED Code(s): 28911691 Plan: The patient is admitted for repeat low transverse section. Risks and, occasions have been explained and the patient is understood and agreed to proceed.
[2023-07-04 02:12] LABS: Basophils % (A) 0 %; Eosinophils # (A) 0.1 k/uL (0-0.7); Eosinophils % (A) 1 %; HCT 33.6 % (34.0-46.0); HGB 11.3 gm/dL (11.4-16.0); Lymphocytes % (A) 23 %; MCH 30.2 pg (25.0-35.0); MCHC 33.5 g/dL (31.0-37.0); MCV 90.3 fL (80.0-100.0); Mean Platelet Volume 9.9; Monocytes # (A) 0.5 k/uL (0-1.0); Monocytes % (A) 5 %; Neutrophils # (A) 5.9 k/uL (1.3-7.7); Neutrophils % (A) 68 %; Platelet Count 223 k/uL (150-450); RBC 3.73 m/uL (3.80-5.40); RDW 14.3 % (11.5-15.5); WBC 8.7 k/uL (3.8-10.6)
[2023-07-04 02:39] LABS: INR 0.8 (<1.2); Partial Thromboplastin Time 23.5 sec (22.0-30.0); Prothrombin Time 9.4 sec (10.0-12.5)
[2023-07-04] MEDS ORDERED: DEXAMETHASONE SOD PHOSPHATE 4 MG/ML 1 ML VIAL ONE (02:43)
[2023-07-04] MEDS ORDERED: MORPHINE SULFATE (PF) 0.3 MG/0.3 ML SYR ONE (02:43)
[2023-07-04] MEDS ORDERED: ONDANSETRON 4 MG/2 ML VIAL ONE (02:43)
[2023-07-04] MEDS ORDERED: HYDROmorphone (PF) 1 MG/ML ONE (02:43)
[2023-07-04] MEDS ORDERED: OXYTOCIN 30 UNITS/500 ML NS BAG IV ONE (02:43)
[2023-07-04] MEDS ORDERED: SIMETHICONE 80 MG CHEWABLE PO PRN (03:43)
[2023-07-04] MEDS ORDERED: diphenhydrAMINE 25 MG CAP PO PRN (03:43)
[2023-07-04] MEDS ORDERED: NALOXONE 0.4 MG/ML 1 ML VIAL IV PRN (03:43)
[2023-07-04] MEDS ORDERED: LANOLIN CREAM 5 GM TUBE TOPICAL PRN (03:43)
[2023-07-04] MEDS ORDERED: ONDANSETRON 4 MG/2 ML VIAL IVP PRN (03:43)
[2023-07-04] MEDS ORDERED: ZOLPIDEM 5 MG TAB PO PRN (03:43)
[2023-07-04] MEDS ORDERED: KETOROLAC 15 MG/ML 1 ML VIAL IVP PRN (03:43)
[2023-07-04] MEDS ORDERED: diphenhydrAMINE 50 MG CAP PO PRN (03:43)
[2023-07-04] MEDS ORDERED: METOCLOPRAMIDE 5 MG/ML 2 ML VIAL IVP PRN (03:43)
[2023-07-04] MEDS ORDERED: diphenhydrAMINE 50 MG/ML 1 ML VIAL IVP PRN ×2 (03:43)
--- NOTE | 2023-07-04 03:52 | P.OP ---
Date of Procedure: 07/04/23 Preoperative Diagnosis: #1. 38 and one sevenths weeks, active labor #2. Previous section 1 #3. Osteogenesis imperfecta Postoperative Diagnosis: Same Procedure(s) Performed: #1. Repeat low transverse section Anesthesia: spinal Surgeon: Kp Richmond [employer] Machine Collector Supervisor #1: Alma Olvera Estimated Blood Loss (ml): 441 IV fluids (ml): 1,100 Urine output (ml): 400 Pathology: none sent Condition: stable Disposition: floor Operative Findings: With the diagnosis of osteogenesis imperfecta, the patient requires repeat section. As she presented in early active labor, her previously otilio eduled elective repeat section was moved up to occur today. She was taken the operating room where she was delivered of a viable 8 lbs. 2 oz. baby boy with Apgars of 8 at 1 minute and 9 at 5 minutes. The placenta was delivered manually, intact, and grossly normal with a grossly normal three-vessel cord. The uterus, tubes, and ovaries were entirely normal to inspection. The was taken to the special care nursery secondary to some ongoing respiratory effort for further observation. Description of Procedure: The patient was prepped and draped in usual fashion after spinal anesthesia was administered by the anesthesiologist. A Pfannenstiel incision was made through pre-existing scar and extended into the abdominal cavity without difficulty. The bladder peritoneum was elevated, incised, and reflected distally. A 2 cm incision was made in the transverse plane of the lower uterine segment to enter the uterus at which time a fairly significant amount of clear fluid was noted. The incision was extended in both directions using the bandage scissors. The head was delivered up and through the incision where the nose and mouth were thoroughly suctioned. The remainder of the was delivered onto the field where the cord was doubly clamped, cut, and the passed resuscitative measures with weight and Apgars as noted above. cord blood was collected per protocol. A segment of cord was doubly clamped, cut, and set aside should cord gases become necessary. The placenta was delivered manually and intact as noted above. The uterus was exteriorized and the interior cavity of uterus swept of any remaining placental or membranous fragments for the margins of the uterine incision were grasped with Gill clamps and the incision closed in 2 layers. The first layer was a running locking stitch of 0 chromic catgut from margin to margin followed by a running imbricating stitch of 0 chromic catgut from margin to margin. Points of bleeding at either angle were made hemostatic with a single [id number] stitch of 0 chromic catgut. The Bovie was utilized to take care of any small points of bleeding. Hemostasis appeared to be excellent. The posterior cul-de-sac was suctioned with a guard and the uterine and ovarian findings were normal as noted above. The uterus was replaced within the abdomen and the gutters swept of any remaining blood, fluid, or clots. Reexamination of the uterine incision demonstrated excellent hemostasis after using the Bovie for small points of bleeding. The parietal peritoneum was loosely reapproximated and layer of muscles examined and made hemostatic with the Bovie. The fascia was closed with 2 running stitches of 0 Vicryl proceeding from the lateral margins to the midpoint. The subcutaneous tissues were irrigated, made hemostatic with the Bovie, and reapproximated with a running stitch of 30 plain catgut. The skin was reapproximated with a running subcuticular stitch of 4-0 Vicryl from margin to margin. This this was followed by half-inch Steri-Strips with Mastisol. Quantitative blood loss for the case was 441 mL. There were no complications. All sponge, instrument, needle counts were correct. Both mother and infant are resting comfortably in recovery of the has been taken to the special care nursery secondary to some ongoing respiratory effort and grunting.
[2023-07-04] MEDS: LACTATED RINGERS 1,000 ML IV SCH ×3 (04:30→19:59)
[2023-07-04] MEDS: ACETAMINOPHEN TAB 500 MG TAB PO SCH ×3 (07:01→19:55)
[2023-07-04] MEDS: IBUPROFEN 600 MG TAB PO SCH ×3 (11:47→23:36)
[2023-07-04] MEDS: SENNOSIDES-DOCUSATE SODIUM 1 EACH TAB PO SCH ×2 (16:00→19:55)
[2023-07-05] MEDS: ACETAMINOPHEN TAB 500 MG TAB PO SCH ×2 (02:47→18:50)
[2023-07-05] MEDS: LACTATED RINGERS 1,000 ML IV SCH (04:56)
[2023-07-05 06:31] LABS: Basophils % (A) 0 %; Eosinophils # (A) 0.1 k/uL (0-0.7); Eosinophils % (A) 1 %; HCT 31.4 % (34.0-46.0); HGB 10.4 gm/dL (11.4-16.0); Lymphocytes # (A) 2.3 k/uL (1.0-4.8); Lymphocytes % (A) 25 %; MCH 30.4 pg (25.0-35.0); MCV 91.9 fL (80.0-100.0); Mean Platelet Volume 9.8; Monocytes # (A) 0.6 k/uL (0-1.0); Monocytes % (A) 7 %; Neutrophils # (A) 5.7 k/uL (1.3-7.7); Neutrophils % (A) 63 %; Platelet Count 171 k/uL (150-450); RBC 3.41 m/uL (3.80-5.40); RDW 14.2 % (11.5-15.5)
--- NOTE | 2023-07-05 07:27 | P.PN ---
Progress Note - Text Progress Note Date: 07/05/23 (0652) Anesthesia Postop day 1 Subjective: Status Post section with Duramorph. Patient seen and examined. Doing well without complaint. VAS 0. Denies nausea vomiting or pruritus. Afebrile. Gross lower extremity strength intact. Without apparent anesthetic complications. Objective: Vital signs reviewed Heart: Regular Rate Lungs: Good chest excursion Abdomen: Appears nondistended Assessment: Status post with Duramorph postop day 1 Plan: Continue current care with your medical management.
[2023-07-05] MEDS: SENNOSIDES-DOCUSATE SODIUM 1 EACH TAB PO SCH (08:20)
--- NOTE | 2023-07-05 11:01 | P.PNOBGPC ---
Subjective - Subjective Principal diagnosis: s/p repeat section Interval history: The patient is doing well this morning and had no acute events overnight. She has no complaints this morning. She reports minimal lochia, passing flatus, voiding without difficulty, ambulating, and eating/drinking without nausea or vomiting. She is her without difficulty. She denies chest pain, shortness of breathing, fevers, or chills overnight. She denies pain or swelling in the legs. Patient reports: Reports appetite normal, Reports voiding normally, Reports pain well controlled, Reports ambulating normally [place]: doing well (in nursery for respiratory distress) Objective - Vital Signs Latest vital signs: Vital Signs Temp Pulse Resp BP Pulse Ox 07/05/23 08:00 98 F 67 16 110/71 07/05/23 00:00 85 16 113/66 99 07/04/23 20:00 97.8 F 85 16 107/67 100 07/04/23 16:00 98.6 F 56 L 16 106/65 97 07/04/23 13:00 98.4 F 60 16 120/52 98 Intake and Output 07/04/23 07/05/23 07/05/23 22:59 06:59 14:59 Output Total 1200 Balance -1200 Output: Urine 1200 Other: # Voids 0 2 1 - Exam Extremities: Present: normal Abdomen: Present: normal appearance, soft Incision: Present: normal, dry, intact Uterus: Present: normal, firm - Labs Labs: Abnormal Lab Results - Last 24 Hours (Table) 07/05/23 Range/Units 06:06 RBC 3.41 L (3.80-5.40) m/uL Hgb 10.4 L (11.4-16.0) gm/dL Hct 31.4 L (34.0-46.0) % Assessment and Plan Assessment: 23 year old now POD#1 s/p repeat section Plan: 1. Postoperative. Patient meeting all postoperative milestones appropriately. 2. Viable male infant. Patient desires circumcision. Will defer until pediatricians deem appropriate. Dispo: anticipate discharge home on POD#2-4, depending on course of .
[2023-07-05] MEDS: IBUPROFEN 600 MG TAB PO SCH ×2 (13:39→20:35)
[2023-07-06] MEDS: ACETAMINOPHEN TAB 500 MG TAB PO SCH ×5 (00:56→20:45)
[2023-07-06] MEDS: IBUPROFEN 600 MG TAB PO SCH ×4 (03:07→18:34)
[2023-07-06] MEDS: SENNOSIDES-DOCUSATE SODIUM 1 EACH TAB PO SCH ×3 (08:18→20:48)
--- NOTE | 2023-07-06 08:45 | P.PNOBGPC ---
Subjective - Subjective Principal diagnosis: s/p repeat section Interval history: The patient is doing well this morning and had no acute events overnight. She has no complaints this morning. She reports minimal lochia, passing flatus, voiding without difficulty, ambulating, and eating/drinking without nausea or vomiting. She is her infant without difficulty. She denies chest pain, shortness of breathing, fevers, or chills overnight. She denies pain or swelling in the legs. Patient reports: Reports appetite normal, Reports voiding normally, Reports pain well controlled, Reports ambulating normally [place]: doing well (IV antibiotics for pneumonia) Objective - Vital Signs Latest vital signs: Vital Signs Temp Pulse Resp BP Pulse Ox 07/06/23 00:00 98.2 F 95 16 116/70 98 07/05/23 15:58 98.7 F 96 16 114/78 100 - Exam Extremities: Present: normal Abdomen: Present: normal appearance, soft Incision: Present: normal, dry, intact Uterus: Present: normal, firm Assessment and Plan Assessment: 23 year old now POD#2 s/p repeat section Plan: 1. Postoperative. Patient meeting all postoperative milestones appropriately. 2. Viable male infant. Patient desires circumcision. Will defer until pediatricians deem appropriate. Dispo: anticipate discharge home on POD#3-4, depending on course of infant.
[2023-07-07] MEDS: IBUPROFEN 600 MG TAB PO SCH ×6 (00:43→21:40)
[2023-07-07] MEDS: ACETAMINOPHEN TAB 500 MG TAB PO SCH ×5 (03:12→17:59)
[2023-07-07] MEDS: LACTATED RINGERS 1,000 ML IV SCH (04:48)
--- NOTE | 2023-07-07 08:37 | P.PNOBGPC ---
Subjective - Subjective Principal diagnosis: s/p repeat section Interval history: The patient is doing well this morning and had no acute events overnight. She has no complaints this morning. She reports minimal lochia, passing flatus, voiding without difficulty, ambulating, and eating/drinking without nausea or vomiting. She is her infant without difficulty. She denies chest pain, shortness of breathing, fevers, or chills overnight. She denies pain or swelling in the legs. Patient reports: Reports appetite normal, Reports voiding normally, Reports pain well controlled, Reports ambulating normally [place]: doing well Objective - Vital Signs Latest vital signs: Vital Signs Temp Pulse Resp BP Pulse Ox 07/07/23 08:00 98.5 F 78 14 116/72 07/07/23 00:00 98.3 F 74 15 118/73 100 07/06/23 16:00 98.4 F 98 18 116/70 Intake and Output 07/06/23 07/07/23 07/07/23 22:59 06:59 14:59 Intake Total 240 Balance 240 Intake: Oral 240 Other: Voiding Method Toilet - Exam Extremities: Present: normal Abdomen: Present: normal appearance, soft Incision: Present: normal, dry, intact Uterus: Present: normal, firm Assessment and Plan Assessment: 23 year old now POD#3 s/p repeat section Plan: 1. Postoperative. Patient meeting all postoperative milestones appropriately. 2. Viable male infant. Patient desires circumcision. Will defer until pediatricians deem appropriate. Dispo: anticipate discharge home on POD#4
[2023-07-07] MEDS: SENNOSIDES-DOCUSATE SODIUM 1 EACH TAB PO SCH ×2 (09:48→21:40)
[2023-07-07] MEDS ORDERED: BACITRACIN OINT 1 EACH PACKET TOPICAL ONE (13:30)
[2023-07-08] MEDS: ACETAMINOPHEN TAB 500 MG TAB PO SCH ×3 (00:18→06:13)
[2023-07-08] MEDS: IBUPROFEN 600 MG TAB PO SCH ×3 (03:32→11:08)
[2023-07-08 08:06] VITALS: PULSE 74; TEMP 97.7
[2023-07-08] MEDS: SENNOSIDES-DOCUSATE SODIUM 1 EACH TAB PO SCH (08:07)
[2023-07-08 08:26] VITALS: BP 126/79; RESP 15
--- NOTE | 2023-07-08 08:43 | P.DS ---
Providers Date of admission: 07/04/23 01:29 Expected date of discharge: 07/08/23 Attending physician: Lona Christine MD Primary care physician: Stated None Hospital Course: Ms. Last is a 23 year old now POD#4 s/p repeat section. T he patient is doing well this morning and had no acute events overnight. She has no complaints this morning. She reports minimal lochia, passing flatus, voiding without difficulty, ambulating, and eating/drinking without nausea or vomiting. is on IV antibiotics in the nursery for pneumonia. She denies chest pain, shortness of breathing, fevers, or chills overnight. She denies pain or swelling in the legs. Postoperative restrictions are reviewed with the patient including pelvic rest for 6 weeks, no lifting heavier than 15 pounds for 6 weeks. The patient is encouraged to call the office if she experiences any heavy bleeding, foul-smelling discharge, breast complaints, or any if she has any other concerns. She will follow up in the office in 2 weeks for postoperative exam. She will go home with Motrin and Tylenol. All questions are answered. Assessment: 23 year old POD#4 s/p repeat Patient Condition at Discharge: Good Plan - Discharge Summary Discharge Rx Participant: No New Discharge Prescriptions: New Ibuprofen [Motrin] 600 mg PO Q6HR PRN #30 tab PRN Reason: Mild Pain (Scale 1 To 3) Acetaminophen Tab [Tylenol] 650 mg PO Q6H PRN #30 tab PRN Reason: Mild Pain (Scale 1 To 3) No Action Cholecalciferol (Vitamin D3) [Vitamin D3] 1,250 mcg PO DAILY Aspirin [Adult Low Dose Aspirin EC] 81 mg PO DAILY Vit No.179/Iron/Folic [ Tablet] 1 tab PO DAILY Discharge Medication List Aspirin [Adult Low Dose Aspirin EC] 81 mg PO DAILY 05/20/23 [History] Cholecalciferol (Vitamin D3) [Vitamin D3] 1,250 mcg PO DAILY 05/20/23 [History] Vit No.179/Iron/Folic [ Tablet] 1 tab PO DAILY 05/20/23 [History] Acetaminophen Tab [Tylenol] 650 mg PO Q6H PRN #30 tab 07/08/23 [Rx] Ibuprofen [Motrin] 600 mg PO Q6HR PRN #30 tab 07/08/23 [Rx] Follow up Appointment(s)/Referral(s): Lona Christine MD [STAFF PHYSICIAN] - 2 Weeks Activity/Diet/Wound Care/Special Instructions: Instructions 1. Do not begin any exercise program for 3 weeks. 2. Do not resume sexual relations for 6 weeks or longer if uncomfortable. 3. You may take tub baths or showers at any time. 4. You may use tampons if desired after 6 weeks. 5. Keep any areas repaired with stitches clean and dry. 6. If you are not nursing, wear a good fitting, supportive bra during the day and limit fluid intake for at least 1 week to prevent breast engorgement. 7. Call the office, , within the next week to make appointment for your 6 week checkup if it has not already been made. 8. Report any of the following occurrences to the doctor promptly: a. Heavy, excessive bleeding b. Chills, fever c. Burning or frequency of urination d. Pain or redness and breasts if nursing e. Increasing pain or swelling of vulva (stitches). In addition to the above instructions, the following additional should be followed: 1. No heavy lifting or straining (exercising) until after 6 week checkup. 2. Keep abdominal incision clean and dry: You may wear a dressing if more comfortable. 3. Make office appointment for 2 weeks after delivery date. Discharge Disposition: HOME SELF-CARE
== END 2023-07-08 10:30 | disposition home or self-care (01) | DRG 540 ==
LOC: FBPOP 23:19 → 4FBP 07-04 01:29
PROVIDERS: ADMIT Obstetrics & Gynecology; ATTEND Obstetrics & Gynecology
PROC: 10D00Z1 Extraction of Products of Conception, Low, Open Approach (ICD-10-PCS; principal; 2023-07-04 02:09)
DX: O34.211 Maternal care for low transverse scar from previous cesarean delivery (principal); Q78.0 Osteogenesis imperfecta; Z37.0 Single live birth; Z79.82 Long term (current) use of aspirin; Z87.891 Personal history of nicotine dependence; Z3A.38 38 weeks gestation of pregnancy
CPT/HCPCS: 59025; 85025; 85610; 85730; 86850; 86900; 86901; 96360; 99213